=== PATIENT | male | born 1990 | race African-American/Black ===

== ENCOUNTER 2016-09-13 19:06 | Emergency (ER) | payer SELFPAY ==
[2016-09-13 19:19] VITALS: BP 136/91
--- NOTE | 2016-09-13 19:33 | ER Document Report ---
ED Medical Screen (RME) - General Chief Complaint: Numbness of Arm Stated Complaint: NUMBNESS IN LEFT HAND/CHEST PAIN Time Seen by Provider: 09/13/16 19:25 Notes: This 25-year-old male patient comes emergency room to report 2 episodes of his left hand going numb lasting 5-10 minutes along with pain in the left chest. Reports it was the entire hand including the fifth finger. Gotten to work, and was preparing to start when he was in an unpleasant conversation causing stress and bringing on his symptoms. The symptoms lasted 5 -10 minutes. The same thing occurred again later in the day. Phalen and Tinel tests are negative. I have greeted and performed a rapid initial assessment of this patient. A comprehensive ED assessment and evaluation of the patient, analysis of test results and completion of the medical decision making process will be conducted by additional ED providers. TRAVEL OUTSIDE OF THE [place] IN LAST 30 DAYS: No - Related Data Allergies/Adverse Reactions: No Known Allergies Allergy (Verified 02/19/16 07:13) Past Medical History - Social History Chew tobacco use (# tins/day): No Frequency of alcohol use: Social Drug Abuse: Marijuana Family history: Reviewed & Not Pertinent - Past Medical History Cardiac Medical History: Denies: Hx Coronary Artery Disease, Hx Hypercholesterolemia, Hx Hypertension , Hx Pulmonary Embolism Pulmonary Medical History: Denies: Hx Asthma Renal/ Medical History: Denies: Hx Peritoneal Dialysis Surgical Hx: Negative - Immunizations Immunizations up to date: No Hx Diphtheria, Pertussis, Tetanus Vaccination: Yes Physical Exam - Vital signs Vitals: Temp Pulse Resp BP Pulse Ox 98.3 F 79 20 136/91 H 99 09/13/16 19:15 09/13/16 19:15 09/13/16 19:15 09/13/16 19:15 09/13/16 19:15 Course - Vital Signs Vital signs: Temp Pulse Resp BP Pulse Ox 98.3 F 79 20 136/91 H 99 09/13/16 19:15 09/13/16 19:15 09/13/16 19:15 09/13/16 19:15 09/13/16 19:15
[2016-09-13 20:15] LABS: ABSOLUTE EOSINOPHILS # (AUTO) 0.1 10^3/uL (0.0-0.6); ABSOLUTE LYMPHOCYTES (AUTO) 1.8 10^3/uL (0.5-4.7); ABSOLUTE MONOCYTES (AUTO) 0.5 10^3/uL (0.1-1.4); ABSOLUTE NEUT (AUTO) 2.7 10^3/uL (1.7-8.2); BASOPHILS % (AUTO) 0.9 % (0-2); EOSINOPHILS % (AUTO) 1.7 % (0-6); HEMATOCRIT 44.3 % (37.9-51.0); HEMOGLOBIN 14.9 g/dL (13.5-17.0); HGB HCT DIFFERENCE 0.4; LYMPHOCYTES % (AUTO) 34.6 % (13-45); MEAN CORPUSCULAR HEMOGLOBIN 33.3 pg (27.0-33.4); MEAN CORPUSCULAR HGB CONC 33.5 g/dL (32.0-36.0); MEAN CORPUSCULAR VOLUME 99 fl (80-97); MONOCYTES % (AUTO) 10.2 % (3-13); RED BLOOD COUNT 4.47 10^6/uL (4.35-5.55); RED CELL DISTRIBUTION WIDTH 12.8 % (11.5-14.0); SEGMENTED NEUTROPHILS % (AUTO) 52.6 % (42-78); WHITE BLOOD COUNT 5.2 10^3/uL (4.0-10.5)
[2016-09-13 20:18] LABS: APPEARANCE,URINE CLEAR; BILIRUBIN,URINE NEGATIVE (NEGATIVE); GLUCOSE, URINE NEGATIVE (NEGATIVE); KETONES,URINE NEGATIVE (NEGATIVE); LEUKOCYTE ESTERASE,URINE NEGATIVE (NEGATIVE); NITRITE,URINE NEGATIVE (NEGATIVE); PROTEIN,URINE NEGATIVE (NEGATIVE); UROBILINOGEN,URINE NEGATIVE mg/dL (<2.0)
[2016-09-13 20:30] LABS: ALANINE AMINOTRANSFERASE 48 U/L (21-72); ALBUMIN 4.3 g/dL (3.5-5.0); ALKALINE PHOSPHATASE 53 U/L (38-126); ANION GAP 12 (5-19); ASPARTATE AMINO TRANSFERASE 33 U/L (17-59); BILIRUBIN,DIRECT 0.1 mg/dL (0.0-0.4); BILIRUBIN,TOTAL 1.2 mg/dL (0.2-1.3); BLOOD UREA NITROGEN 9 mg/dL (7-20); CALCIUM 9.6 mg/dL (8.4-10.2); CARBON DIOXIDE 30 mmol/L (22-30); CHLORIDE 99 mmol/L (98-107); CREATINE KINASE 444 U/L (55-170); CREATININE RESULT 0.95 mg/dL (0.52-1.25); GLUCOSE 84 mg/dL (75-110); POTASSIUM 3.9 mmol/L (3.6-5.0); SODIUM 140.6 mmol/L (137-145)
[2016-09-13 20:36] LABS: URINE BARBITURATES SCREEN NEGATIVE; URINE METHADONE SCREEN NEGATIVE; URINE OPIATES LOW NEGATIVE; URINE PHENCYCLIDINE SCREEN NEGATIVE
[2016-09-13 21:02] LABS: CREATINE KINASE MB 3.95 ng/mL (<4.55)
[2016-09-13 21:07] LABS: TROPONIN I < 0.012 ng/mL
--- NOTE | 2016-09-16 09:52 | EKG REPORT ---
SEVERITY:- ABNORMAL ECG - SINUS RHYTHM PROBABLE LEFT VENTRICULAR HYPERTROPHY ST ELEV, PROBABLE NORMAL EARLY REPOL PATTERN : Confirmed by: Paulette Loyd 16-Sep-2016 09:51:59
== END 2016-09-13 20:45 | disposition left against medical advice (07) ==
LOC: ER 19:06
DX: Z53.9 Procedure and treatment not carried out, unspecified reason (principal); R20.0 Anesthesia of skin; R07.9 Chest pain, unspecified
CPT/HCPCS: 36415; 80053; 80307; 81001; 82550; 82553; 84484; 85025; 93005; 93010; 99281

== ENCOUNTER 2016-09-18 17:55 | Emergency (ER) | payer SELFPAY ==
[2016-09-18 18:09] VITALS: BP 141/82
--- NOTE | 2016-09-18 21:27 | ER Document Report ---
ED General - General Chief Complaint: Wrist Pain Stated Complaint: WRIST PAIN Time Seen by Provider: 09/18/16 21:08 Notes: Patient is a 25-year-old male without past medical history who presents with 2 weeks of intermittent left-sided chest pain. Does describe the pain as an intermittent, sharp, stabbing pain that is exacerbated by moving his left shoulder or left. He has not tried anything to improve his symptoms. He has not seen his primary care doctor regarding today's concerns. He denies any acute injury to the area. No associated shortness of breath, vomiting, diaphoresis. No history of DVT or pulmonary embolus. TRAVEL OUTSIDE OF THE [place] IN LAST 30 DAYS: No - Related Data Allergies/Adverse Reactions: No Known Allergies Allergy (Verified 09/18/16 18:00) Past Medical History - General Information source: Patient - Social History Smoking Status: Current Every Day Smoker Chew tobacco use (# tins/day): No Frequency of alcohol use: None Drug Abuse: None Lives with: Spouse/Significant other Family History: DM Patient has suicidal ideation: No Patient has homicidal ideation: No - Past Medical History Cardiac Medical History: Denies: Hx Coronary Artery Disease, Hx Hypercholesterolemia, Hx Hypertension , Hx Pulmonary Embolism Pulmonary Medical History: Denies: Hx Asthma Renal/ Medical History: Denies: Hx Peritoneal Dialysis Surgical Hx: Negative - Immunizations Immunizations up to date: No Hx Diphtheria, Pertussis, Tetanus Vaccination: Yes Review of Systems - Review of Systems Notes: Constitutional: Negative for fever. HENT: Negative for sore throat. Eyes: Negative for visual changes. Cardiovascular: Positive for chest pain. Respiratory: Negative for shortness of breath. Gastrointestinal: Negative for abdominal pain, vomiting or diarrhea. Genitourinary: Negative for dysuria. Musculoskeletal: Negative for back pain. Skin: Negative for rash. Neurological: Negative for headaches, weakness or numbness. 10 point ROS negative except as marked above and in HPI. Physical Exam - Vital signs Vitals: Temp Pulse Resp BP Pulse Ox 98.3 F 66 18 141/82 H 98 09/18/16 18:02 09/18/16 18:02 09/18/16 18:02 09/18/16 18:02 09/18/16 18:02 Interpretation: Normal Notes: PHYSICAL EXAMINATION: GENERAL: Well-appearing, well-nourished and in no acute distress. HEAD: Atraumatic, normocephalic. EYES: Pupils equal round and reactive to light, extraocular movements intact, sclera anicteric, conjunctiva are normal. ENT: nares patent, oropharynx clear without exudates. Moist mucous membranes. NECK: Normal range of motion, supple without lymphadenopathy LUNGS: Breath sounds clear to auscultation bilaterally and equal. No wheezes rales or rhonchi. HEART: Regular rate and rhythm without murmurs ABDOMEN: Soft, nontender, normoactive bowel sounds. No guarding, no rebound. No masses appreciated. EXTREMITIES: Normal range of motion, no pitting or edema. No cyanosis. NEUROLOGICAL: No focal neurological deficits. Moves all extremities spontaneously and on command. PSYCH: Normal mood, normal affect. SKIN: Warm, Dry, normal turgor, no rashes or lesions noted. Course - Re-evaluation Re-evalutation: 09/18/16 21:27 Patient is a well-appearing, 25-year-old male in no acute distress who presents with 2 weeks of intermittent left-sided chest discomfort. Does describe it as intermittent stabbing pains. Suspect musculoskeletal irritation given the reproducible nature pain on exam, clinical history, normal vitals and well appearance. Low clinical suspicion for an acute PE, pneumothorax, esophageal perforation or acute UT. Chest x-ray and EKG are unremarkable. I recommended conservative management and close outpatient follow-up. At this time will discharge with return precautions and follow-up recommendations. Verbal discharge instructions given a the bedside and opportunity for questions given. Medication warnings reviewed. Patient is in agreement with this plan and has verbalized understanding of return precautions and the need for primary care follow-up in the next 24-72 hours. - Vital Signs Vital signs: Temp Pulse Resp BP Pulse Ox 98.3 F 66 18 141/82 H 98 09/18/16 18:02 09/18/16 18:02 09/18/16 18:02 09/18/16 18:02 09/18/16 18:02 - Diagnostic Test Radiology reviewed: Image reviewed, Reports reviewed Radiology results interpreted by me: 09/19/16 02:55 Chest x-ray: No acute infiltrate or pneumothorax - EKG Interpretation by Me Additional EKG results interpreted by me: 09/19/16 02:55 Sinus bradycardia. Rate 54. No ST elevations or depressions. QTC is 372. Discharge - Discharge Clinical Impression: Musculoskeletal chest pain Condition: Good Disposition: HOME, SELF-CARE Additional Instructions: Your chest wall pain is due to inflammation of your ribs. This pain can last for up to 6 weeks. It is very important that you continue to take purposeful deep breaths. For your pain: Continue to take ibuprofen 600 mg every 6 hours or Tylenol 1000 mg every 6 hours. Apply local lidocaine to the area per bottle instructions. There is a product sold [id number] called "Aspercreme with lidocaine" that you can use for this purpose. Please follow-up with her primary care doctor in the next 2-3 days. Return to the emergency department immediately if you develop worsening shortness of breath, increased pain, begin coughing blood, pass out, or have any other symptoms that are worrisome to you.
--- NOTE | 2016-09-18 21:59 | RADIOLOGY REPORT (SQ) ---
EXAM DESCRIPTION: CHEST SINGLE VIEW COMPLETED DATE/TIME: 09/18/2016 9:51 pm REASON FOR STUDY: chest pain COMPARISON: 02/03/2016 EXAM PARAMETERS: NUMBER OF VIEWS: One view. TECHNIQUE: Single frontal radiographic view of the chest acquired. RADIATION DOSE: NA LIMITATIONS: None. FINDINGS: LUNGS AND PLEURA: No opacities, masses or pneumothorax. No pleural effusion. MEDIASTINUM AND HILAR STRUCTURES: No masses. Contour normal. HEART AND VASCULAR STRUCTURES: Heart normal in size. Normal vasculature. BONES: No acute findings. HARDWARE: None in the chest. OTHER: No other significant finding. IMPRESSION: NO ACUTE RADIOGRAPHIC FINDING IN THE CHEST. TECHNICAL DOCUMENTATION: JOB ID: [id number]
--- NOTE | 2016-09-19 09:18 | EKG REPORT ---
SEVERITY:- ABNORMAL ECG - SINUS RHYTHM MULTIPLE PREMATURE SUPRAVEN ST ELEVATION SUGGESTS PERICARDITIS : Confirmed by: Paulette Loyd 19-Sep-2016 09:17:59
== END 2016-09-18 23:06 | disposition home or self-care (01) ==
LOC: ER 17:55
DX: R07.89 Other chest pain (principal); M25.539 Pain in unspecified wrist; F17.200 Nicotine dependence, unspecified, uncomplicated
CPT/HCPCS: 71010; 93005; 93010; 99284

== ENCOUNTER 2016-10-22 00:21 | Emergency (ER) | payer SELFPAY ==
--- NOTE | 2016-10-22 02:44 | RADIOLOGY REPORT (SQ) ---
EXAM DESCRIPTION: CHEST PA/LAT COMPLETED DATE/TIME: 10/22/2016 2:16 am REASON FOR STUDY: difficulty breathing COMPARISON: 09/18/2016. EXAM PARAMETERS: NUMBER OF VIEWS: two views TECHNIQUE: Digital Frontal and Lateral radiographic views of the chest acquired. RADIATION DOSE: NA LIMITATIONS: none FINDINGS: LUNGS AND PLEURA: No opacities, masses or pneumothorax. No pleural effusion. MEDIASTINUM AND HILAR STRUCTURES: No masses or contour abnormalities. HEART AND VASCULAR STRUCTURES: Heart normal size. No evidence for failure. BONES: No acute findings. HARDWARE: None in the chest. OTHER: No other significant finding. IMPRESSION: NO SIGNIFICANT RADIOGRAPHIC FINDING IN THE CHEST. TECHNICAL DOCUMENTATION: JOB ID: [id number] [employer]- All Rights Reserved
[2016-10-22] MEDS ORDERED: ALPRAZOLAM 0.5 MG TABLET PO ONE (04:23)
--- NOTE | 2016-10-22 04:27 | ER Document Report ---
ED General - General Chief Complaint: Shortness Of Breath Stated Complaint: SHORTNESS OF BREATH Time Seen by Provider: 10/22/16 04:12 Mode of Arrival: Ambulatory Information source: Patient TRAVEL OUTSIDE OF THE [place] IN LAST 30 DAYS: No - HPI Notes: Patient is a 25-year-old male presents to the emergency department with report of dyspnea and some palpitations with chest discomfort that comes on just at rest "when he is thinking about it." The patient exercises regularly at work using a weed eater and a push mower in the heat without having any chest pain or dyspnea or palpitations. Patient admits to some anxiety. Patient admits to marijuana use, but denies any other drug use. No fever or chills or cough or congestion. - Related Data Allergies/Adverse Reactions: No Known Allergies Allergy (Verified 09/18/16 18:00) Past Medical History - General Information source: Patient - Social History Smoking Status: Current Some Day Smoker Frequency of alcohol use: None Drug Abuse: Marijuana Family History: DM Patient has suicidal ideation: No Patient has homicidal ideation: No - Past Medical History Cardiac Medical History: Denies: Hx Coronary Artery Disease, Hx Hypercholesterolemia, Hx Hypertension , Hx Pulmonary Embolism Pulmonary Medical History: Denies: Hx Asthma Renal/ Medical History: Denies: Hx Peritoneal Dialysis - Immunizations Immunizations up to date: No Hx Diphtheria, Pertussis, Tetanus Vaccination: Yes Review of Systems - Review of Systems Notes: REVIEW OF SYSTEMS: CONSTITUTIONAL : Denies fever, chills, or sweats. Denies recent illness. EENT: Denies eye, ear, throat, or mouth pain or symptoms. Denies nasal or sinus congestion or discharge. Denies throat, tongue, or mouth swelling or difficulty swallowing. CARDIOVASCULAR: Denies ankle edema. RESPIRATORY: Denies cough, cold, or chest congestion. Denies wheezing. GASTROINTESTINAL: Denies abdominal pain or distention. Denies nausea, vomiting , or diarrhea. Denies blood in vomitus, stools, or per rectum. Denies black, tarry stools. Denies constipation. GENITOURINARY: Denies difficulty urinating, painful urination, burning, frequency, blood in urine, or discharge. MUSCULOSKELETAL: Denies back or neck pain or stiffness. Denies joint pain or swelling. SKIN: Denies rash, lesions or sores. HEMATOLOGIC : Denies easy bruising or bleeding. LYMPHATIC: Denies swollen, enlarged glands. NEUROLOGICAL: Denies confusion or altered mental status. Denies passing out or loss of consciousness. Denies dizziness or lightheadedness. Denies headache. Denies weakness or paralysis or loss of use of either side. Denies problems with gait or speech. Denies sensory loss, numbness, or tingling. Denies seizures. PSYCHIATRIC: Denies depression, suicidal ideation, or homicidal ideation. ALL OTHER SYSTEMS REVIEWED AND NEGATIVE. Dictation was performed using [employer] voice recognition software Physical Exam - Vital signs Vitals: Temp Pulse Resp BP Pulse Ox 98.6 F 77 20 139/79 H 96 10/22/16 00:25 10/22/16 00:25 10/22/16 00:25 10/22/16 00:25 10/22/16 00:25 - Notes Notes: PHYSICAL EXAMINATION: GENERAL: Well-appearing, well-nourished and in no acute distress. HEAD: Atraumatic, normocephalic. EYES: Pupils equal round and reactive to light, extraocular movements intact, sclera anicteric, conjunctiva are normal. ENT: Nares patent, oropharynx clear without exudates. Moist mucous membranes. NECK: Normal range of motion, supple without lymphadenopathy LUNGS: Breath sounds clear to auscultation bilaterally and equal. No wheezes rales or rhonchi. HEART: Regular rate and rhythm without murmurs ABDOMEN: Soft, nontender, nondistended abdomen. No guarding, no rebound. No masses appreciated. Musculoskeletal: Normal range of motion, no pitting or edema. No cyanosis. NEUROLOGICAL: Cranial nerves grossly intact. Normal speech, normal gait. Normal sensory, motor exams PSYCH: Somewhat anxious. No hallucinations. SKIN: Warm, Dry, normal turgor, no rashes or lesions noted. Course - Re-evaluation Re-evalutation: 10/22/16 05:52 Patient given Xanax with complete relief of symptoms and felt stable for discharge. Patient ambulatory without complaint and had stable vitals and good oxygen saturation. No evidence for pneumonia, congestive heart failure, cardiac ischemia or acute [place]. No clinical suggestion for pulmonary embolus. 10/22/16 05:56 - Vital Signs Vital signs: Temp Pulse Resp BP Pulse Ox 97.7 F 58 L 16 91/51 L 98 10/22/16 03:58 10/22/16 03:58 10/22/16 05:02 10/22/16 05:02 10/22/16 05:02 - EKG Interpretation by Me EKG shows normal: Sinus rhythm - 1 some time Additional EKG results interpreted by me: 10/22/16 04:34 10/22/16 04:35 EKG as interpreted by me showed normal sinus rhythm heart rate of 51 with mild bradycardia. There is no gross evidence for acute [place] or ischemia. Patient has borderline LVH consistent with thin black male. Discharge - Discharge Clinical Impression: Anxiety Dyspnea Qualifiers: Dyspnea type: unspecified Qualified Code(s): R06.00 - Dyspnea, unspecified Chest pain Qualifiers: Chest pain type: unspecified Qualified Code(s): R07.9 - Chest pain, unspecified Condition: Stable Disposition: HOME, SELF-CARE Instructions: Anxiety ([facility]), Chest Pain of Unclear Cause ([facility]) Prescriptions: Alprazolam [Xanax 0.5 mg Tablet] 0.5 mg PO Q12HP PRN #20 tab PRN Reason: Forms: Return to Work
[2016-10-22 06:03] VITALS: BP 110/71
--- NOTE | 2016-10-22 07:49 | EKG REPORT ---
SEVERITY:- ABNORMAL ECG - SINUS RHYTHM ST ELEVATION SUGGESTS PERICARDITIS VS EARLY REPOLARIZATION : Confirmed by: Paulette Loyd 22-Oct-2016 07:48:16
== END 2016-10-22 06:10 | disposition home or self-care (01) ==
LOC: ER 00:21
DX: F41.9 Anxiety disorder, unspecified (principal); R06.02 Shortness of breath; R07.9 Chest pain, unspecified; R00.2 Palpitations; F17.200 Nicotine dependence, unspecified, uncomplicated
CPT/HCPCS: 71020; 93005; 93010; 99285

== ENCOUNTER 2018-02-08 00:45 | Emergency (ER) | payer SELFPAY ==
[2018-02-08 00:58] VITALS: BP 133/74
--- NOTE | 2018-02-08 01:43 | RADIOLOGY REPORT (SQ) ---
EXAM DESCRIPTION: XR ELBOW 3 VIEWS COMPLETED DATE/TME: 02/08/2018 01:28 CLINICAL HISTORY: 27 years, Male, left elbow pain COMPARISON: None. NUMBER OF VIEWS: 3 TECHNIQUE: 3 view left elbow LIMITATIONS: None. FINDINGS: Negative for acute fracture or dislocation. Punctate hyperdensities along the lateral aspect of the elbow soft tissues are noted. Tiny olecranon spur. There is no visible posterior fat pad. Some questionable elevation of the anterior fat pad IMPRESSION: Negative for fracture. Punctate densities in the lateral soft tissues. Tiny olecranon spur. Some equivocal elevation of the anterior fat pad on the lateral view for which small joint effusion is not excluded 2010 [employer]- All Rights Reserved
[2018-02-08] MEDS ORDERED: KETOROLAC TROMETHAMINE 60 MG/2 ML SDV IM ONE (01:56)
[2018-02-08] MEDS ORDERED: LIDOCAINE 5% (700 MG) TRANSDERMAL ADH..PATCH TP ONE (01:56)
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
== END 2018-02-08 03:30 | disposition home or self-care (01) ==
LOC: ER 00:45
DX: S59.902A Unspecified injury of left elbow, initial encounter (principal); M25.522 Pain in left elbow; X58.XXXA Exposure to other specified factors, initial encounter; F17.200 Nicotine dependence, unspecified, uncomplicated
CPT/HCPCS: 99283; 96372; 73080; J1885

== ENCOUNTER 2018-09-16 17:11 | Emergency (ER) | payer SELFPAY ==
[2018-09-16] MEDS ORDERED: DIPHENHYDRAMINE HCL 50 MG/ML VIAL ONE (17:15)
[2018-09-16] MEDS ORDERED: METHYLPREDNISOLONE INJ 125 MG/2 ML SDV ONE (17:15)
[2018-09-16] MEDS ORDERED: FAMOTIDINE INJ/PF 20 MG/2 ML SDV IV ONE (17:15)
[2018-09-16] MEDS ORDERED: EPINEPHRINE INJ/PF 1 MG/1 ML AMPULE ONE ×2 (17:15→20:59)
[2018-09-16] MEDS ORDERED: ONDANSETRON HCL INJ/PF 4 MG/2 ML SDV ONE (17:16)
[2018-09-16] MEDS ORDERED: AMMONIA INHALANTS 10 AMPUL/BOX IH ONE (17:21)
[2018-09-16] MEDS ORDERED: NALOXONE HCL INJ 2 MG/2 ML DISP.SYRIN ONE (17:23)
--- NOTE | 2018-09-16 20:26 | ER Document Report ---
ED General - General Chief Complaint: Allergic Reaction Stated Complaint: POSSIBLE ALLERGIC REACTION Time Seen by Provider: 09/16/18 17:44 Mode of Arrival: Wheelchair Information source: Patient Notes: 27-year-old male presents after a bug bite just prior to arrival. Patient complaining of difficulty swallowing. He is diaphoretic, vomiting and tachycardic upon arrival. Patient denies shortness of breath, rash, chest pain, abdominal pain. Does admit to cocaine use 2 days ago. Denies any known allergies. TRAVEL OUTSIDE OF THE [place] IN LAST 30 DAYS: No - HPI Onset: Just prior to arrival Onset/Duration: Sudden Quality of pain: No pain Severity: Mild Associated symptoms: Nausea, Vomiting, Other - Difficulty swallowing Exacerbated by: Denies Relieved by: Denies Similar symptoms previously: No Recently seen / treated by doctor: No - Related Data Allergies/Adverse Reactions: No Known Allergies Allergy (Verified 09/16/18 17:29) Past Medical History - General Information source: Patient, Friend - Social History Smoking Status: Current Every Day Smoker Cigarette use (# per day): Yes - 10 Chew tobacco use (# tins/day): No Smoking Education Provided: Yes - Smoking cessation counseling was provided for 4 minutes at the bedside Frequency of alcohol use: Occasional Drug Abuse: Cocaine, Marijuana Lives with: Family Family History: DM Patient has suicidal ideation: No Patient has homicidal ideation: No - Past Medical History Cardiac Medical History: Denies: Hx Coronary Artery Disease, Hx Hypercholesterolemia, Hx Hypertension, Hx Pulmonary Embolism Pulmonary Medical History: Denies: Hx Asthma Renal/ Medical History: Denies: Hx Peritoneal Dialysis - Immunizations Immunizations up to date: No Hx Diphtheria, Pertussis, Tetanus Vaccination: Yes Review of Systems - Review of Systems Notes: REVIEW OF SYSTEMS: CONSTITUTIONAL : Denies fever, chills, or sweats. Denies recent illness. Denies weight loss, recent hospitalizations. EENT: Denies visual changes, eye pain. Denies sore throat, oral lesions, + difficulty swallowing. CARDIOVASCULAR: Denies chest pain. Denies palpitations. Denies lower extremity edema. RESPIRATORY: Denies cough. Denies shortness of breath, wheezing. GASTROINTESTINAL: Denies abdominal pain or distention. Denies nausea, vomiting, or diarrhea. Denies blood in vomitus, stools, or per rectum. Denies black, tarry stools. Denies constipation. GENITOURINARY: Denies difficulty urinating, painful urination, frequency, blood in urine, testicular pain or penile discharge. MUSCULOSKELETAL: Denies back or neck pain or stiffness. Denies joint pain or swelling. SKIN: Denies rash, lesions or sores. HEMATOLOGIC : Denies easy bruising or bleeding. LYMPHATIC: Denies swollen glands. NEUROLOGICAL: Denies confusion or altered mental status. Denies loss of consciousness. Denies dizziness or lightheadedness. Denies headache. Denies weakness or paralysis. Denies problems difficulty with ambulation, slurred speech. Denies sensory loss, numbness, or tingling. Denies seizures. PSYCHIATRIC: Denies anxiety or stress. Denies depression, suicidal ideation, or Physical Exam - Vital signs Vitals: Resp Pulse Ox 15 97 09/16/18 17:23 09/16/18 17:23 - Notes Notes: PHYSICAL EXAMINATION: GENERAL: Ill-appearing, diaphoretic, actively vomiting moderate distress. HEAD: Atraumatic, normocephalic. EYES: Pupils equal round and reactive to light, extraocular movements intact, sclera anicteric, conjunctiva are normal. ENT: Nares patent, oropharynx clear without exudates. Moist mucous membranes. NECK: Normal range of motion, supple without lymphadenopathy LUNGS: Breath sounds clear to auscultation bilaterally and equal. No wheezes rales or rhonchi. HEART: Tachycardic, regular rhythm no murmurs ABDOMEN: Soft, nontender, nondistended abdomen. No guarding, no rebound. No masses appreciated. Musculoskeletal: Normal range of motion, no pitting or edema. No cyanosis. NEUROLOGICAL: Cranial nerves grossly intact. Normal speech, normal gait. Normal sensory, motor exams PSYCH: Normal mood, normal affect. SKIN: Diaphoretic. Small area of erythema anterior to the left tragus. No urticaria Course - Re-evaluation Re-evalutation: Laboratory 09/16/18 17:21 POC Glucose 142 H Temp Pulse Resp BP Pulse Ox 97.9 F 15 132/81 H 100 09/16/18 19:01 09/16/18 19:01 09/16/18 19:01 09/16/18 18:31 09/16/18 21:16 Patient presented with complaint of a bug bite to his left ear. Upon arrival he was diaphoretic, tachycardic and vomiting. Patient had no wheezing, airway swelling, rash or hives. Patient did receive Zofran, Benadryl, Solu-Medrol and Pepcid. After fluid bolus heart rate improved. Patient had an initial heart rate of 133. Heart rate presently is 92. On reevaluation patient had some lip swelling and IM epinephrine was administered. On fourth reevaluation lip swelling has improved airway still patent and patient is still without any airway compromise rash or wheezing. 09/16/18 21:43 On reevaluation lip swelling improved. Patient tolerating food, fluid. 09/16/18 21:44 Patient presents with symptoms consistent with an allergic reaction without anaphylaxis. cutaneous involvement with area of hives, upper lip awelling. Tachycardia resolved No respiratory, cardiovascular, symptoms. A trial of epinephrine for symptom resolution was offered to the patient. This did resolve lip swelling. Will recommend ongoing antihistamine therapy as an outpatient. At this time will discharge with return precautions and follow-up recommendations. Verbal discharge instructions given a the bedside and opportunity for questions given. Medication warnings reviewed. Patient is in agreement with this plan and has verbalized understanding of return precautions and the need for primary care follow-up in the next 24-72 hours. - Vital Signs Vital signs: Temp Pulse Resp BP Pulse Ox 97.9 F 14 130/77 H 99 09/16/18 19:01 09/16/18 21:00 09/16/18 20:31 09/16/18 21:00 - Laboratory Laboratory results interpreted by me: 09/16/18 17:21 POC Glucose 142 H Discharge - Discharge Clinical Impression: Bug bite of face without infection Allergic reaction Qualifiers: Encounter type: initial encounter Qualified Code(s): T78.40XA - Allergy, unspecified, initial encounter Condition: Good Disposition: HOME, SELF-CARE Instructions: Acute Allergic Reaction ([facility]) Additional Instructions: Patient presents with symptoms consistent with an allergic reaction without anaphylaxis. Only cutaneous involvement with multiple areas of hives. Vitals otherwise within normal limits at time of arrival. No respiratory, GI, cardiovascular, or oral pharyngeal symptoms. A trial of epinephrine for symptom resolution was offered to the patient. This did resolve the majority of the patient's hives. Will recommend ongoing antihistamine therapy as an outpatient. At this time will discharge with return precautions and follow-up recommendati ons. Verbal discharge instructions given a the bedside and opportunity for questions given. Medication warnings reviewed. Patient is in agreement with this plan and has verbalized understanding of return precautions and the need for primary care follow-up in the next 24-72 hours. Prescriptions: Diphenhydramine HCl [Benadryl 25 mg Capsule] 25 mg PO Q8H #15 capsule Epinephrine [Epipen 2-Philip] 0.3 mg IJ ASDIR PRN #1 auto.injct PRN Reason: Shortness Of Breath Famotidine [Pepcid 40 mg Tablet] 40 mg PO DAILY #7 tablet Prednisone [Deltasone 20 mg Tablet] 3 tab PO DAILY 5 Days #15 tablet
[2018-09-16] MEDS ORDERED: EPINEPHRINE INJ/PF 1 MG/1 ML AMPULE IM ONE (20:28)
[2018-09-16] MEDS ORDERED: EPINEPHRINE INJ/PF 1 MG/1 ML AMPULE IM PRN (21:05)
[2018-09-16 22:09] VITALS: BP 139/71
--- NOTE | 2018-09-17 08:22 | EKG REPORT ---
SEVERITY:- ABNORMAL ECG - SINUS RHYTHM RIGHT ATRIAL ABNORMALITY BORDERLINE RIGHT AXIS DEVIATION : Confirmed by: Juan Velasquez MD 17-Sep-2018 08:22:18
== END 2018-09-16 22:09 | disposition home or self-care (01) ==
LOC: ER 17:11
DX: S00.86XA Insect bite (nonvenomous) of other part of head, initial encounter (principal); W57.XXXA Bitten or stung by nonvenomous insect and other nonvenomous arthropods, initial encounter; T78.40XA Allergy, unspecified, initial encounter; X58.XXXA Exposure to other specified factors, initial encounter; R13.10 Dysphagia, unspecified; R61 Generalized hyperhidrosis; R11.2 Nausea with vomiting, unspecified; F14.10 Cocaine abuse, uncomplicated; F12.10 Cannabis abuse, uncomplicated; R00.0 Tachycardia, unspecified; F17.210 Nicotine dependence, cigarettes, uncomplicated; Z71.6 Tobacco abuse counseling
CPT/HCPCS: 93005; 99283; 96372; 96374; 96375; 82962; 93010; J1200; J0171; J2930; J2405; S0028

== ENCOUNTER 2018-11-16 11:56 | Emergency (ER) | payer OTHER ==
[2018-11-16] MEDS ORDERED: FAMOTIDINE INJ/PF 20 MG/2 ML SDV IV ONE (12:30)
[2018-11-16] MEDS ORDERED: DIPHENHYDRAMINE HCL 50 MG/ML VIAL IV ONE (12:30)
[2018-11-16] MEDS ORDERED: METHYLPREDNISOLONE INJ 125 MG/2 ML SDV IV ONE (12:30)
--- NOTE | 2018-11-16 12:57 | RADIOLOGY REPORT (SQ) ---
EXAM DESCRIPTION: CHEST 2 VIEWS COMPLETED DATE/TIME: 11/16/2018 12:39 pm REASON FOR STUDY: Bee sting, chest pain COMPARISON: 10/22/2016 EXAM PARAMETERS: NUMBER OF VIEWS: two views TECHNIQUE: Digital Frontal and Lateral radiographic views of the chest acquired. RADIATION DOSE: NA LIMITATIONS: none FINDINGS: LUNGS AND PLEURA: No opacities, masses or pneumothorax. No pleural effusion. MEDIASTINUM AND HILAR STRUCTURES: No masses or contour abnormalities. HEART AND VASCULAR STRUCTURES: Heart normal size. No evidence for failure. BONES: No acute findings. HARDWARE: None in the chest. OTHER: No other significant finding. IMPRESSION: NO ACUTE RADIOGRAPHIC FINDING IN THE CHEST. TECHNICAL DOCUMENTATION: JOB ID: [id number] [employer] All Rights Reserved Reading location - IP/workstation name: [email or web address]
--- NOTE | 2018-11-16 14:09 | ER Document Report ---
ED Allergic Reaction - General Chief Complaint: Allergic Reaction Stated Complaint: POSSIBLE ALLERGIC REACTION Time Seen by Provider: 11/16/18 12:30 Notes: Patient was stung on the left dorsal lateral hand by yellow jackets about 25 minutes ago. Not stung elsewhere. Feels some tightness in his chest. Feels some difficulty breathing as well. Does not have any rash and is not itching. No swelling in the oral cavity. TRAVEL OUTSIDE OF THE [place] IN LAST 30 DAYS: No - Related Data Allergies/Adverse Reactions: No Known Allergies Allergy (Verified 09/16/18 17:29) Past Medical History - Social History Smoking Status: Current Every Day Smoker Chew tobacco use (# tins/day): No Frequency of alcohol use: Heavy Drug Abuse: Marijuana Family History: Reviewed & Not Pertinent, DM Patient has suicidal ideation: No Patient has homicidal ideation: No Renal/ Medical History: Reports: Hx Peritoneal Dialysis - Immunizations Immunizations up to date: No Hx Diphtheria, Pertussis, Tetanus Vaccination: Yes Review of Systems - Review of Systems Notes: CONSTITUTIONAL : Denies fever. CARDIOVASCULAR: Does have chest tightness, especially on the left side. RESPIRATORY: Denies cough, chest congestion, or shortness of breath. GASTROINTESTINAL: Denies abdominal pain or nausea, vomiting, or diarrhea. GENITOURINARY: Denies difficulty or painful urinating, urinary frequency, blood in urine. Physical Exam - Vital signs Vitals: Temp Pulse Resp BP Pulse Ox 97.5 F 47 L 18 122/72 100 11/16/18 12:00 11/16/18 12:00 11/16/18 12:00 11/16/18 12:00 11/16/18 12:00 Interpretation: Normal - Except for heart rate of 47 when triaged. Notes: PHYSICAL EXAMINATION: GENERAL: Well-appearing, no acute distress. Anxious. HEAD: Atraumatic, normocephalic. HEENT: Normal without any swelling of soft tissues. NECK: Normal range of motion, supple. LUNGS: Breath sounds clear and equal bilaterally. No wheezes heard. HEART: Regular rate and rhythm without murmurs heard. ABDOMEN: Soft, nontender. No guarding or rebound or masses felt. Skin: No rashes seen. Course - Re-evaluation Re-evalutation: 11/16/18 14:06 Patient feeling much better. Sleeping. No difficulty breathing. She remained stable throughout his entire stay in the department. He was discharged with advised to take [id number] Benadryl or Pepcid if he has any more rash. Given a note for work for a day. - Vital Signs Vital signs: Temp Pulse Resp BP Pulse Ox 97.5 F 47 L 18 118/75 100 11/16/18 14:13 11/16/18 12:00 11/16/18 12:00 11/16/18 14:13 11/16/18 14:13 - Diagnostic Test Radiology results interpreted by wy: 11/16/18 19:09 Chest x-ray was normal. - EKG Interpretation by Mi EKG shows normal: Sinus rhythm Rate: Bradycardia Rhythm: NSR Additional EKG results interpreted by wy: 11/16/18 19:01 EKG has a rate of 48. Changes suggestive of early repolarization noted. No evidence of ST segment elevation of STEMI. Discharge - Discharge Clinical Impression: Allergic reaction to bee sting Condition: Stable Disposition: HOME, SELF-CARE Additional Instructions: Insect Sting You've been stung by an insect. The venom can cause pain, redness, and swelling. Right after the sting, we sometimes use adrenaline to reduce the reaction to the venom. This also stops any allergic reaction. You should apply cold compresses, rest and elevate the affected part, and take antihistamines. A more severe, itchy red swelling sometimes develops the next day. This is a local allergic reaction to the venom. This local allergy isn't dangerous. We treat it with cortisone-type medicine and antihistamines. Sometimes we use antibiotics if we're worried about infection. If you develop a fever, chills, a red streak, or swollen glands in the area of the bite, infection may be starting. Return at once. Insect stings from the bee and hornet family may cause a severe allergic reaction. Symptoms include hoarseness, shortness of breath, general redness of the skin, general itching, or lightheadedness. If any of these symptoms occur, you'll be treated with adrenalin and cortisone-like steroids. You should carry an "Anaphylaxis Kit" with you in the summer months so you can administer these medications to yourself before getting emergency medical care. ACUTE ALLERGIC REACTION: Your symptoms are due to an allergic reaction. Allergy can cause hives, swelling of the hands, feet, and face, hoarseness, and difficulty swallowing or breathing. It may be due to exposure to medication, animal dander, foods, infection, or insect bites. Medication is a common cause, even when prior use of this same medication caused no problems. Acute treatment may include adrenalin and antihistamines. Usually, the specific allergic agent can't be identified unless repeated episodes occur. Home treatment includes the following: (1) Stop any suspicious medications. This will be discussed with you. (2) Oral antihistamines for the next four to five days. Example, diphenhydramine (Benadryl) every four hours. (3) You may also use cimetidine (Tagamet), ranitidine (Zantac), or famotidine (Pepcid) every four hours if diphenhydramine is not controlling itching and hives. (4) Avoid aspirin until the hives completely disappear. (5) Avoid hot baths or showers until the hives are completely gone. Call the doctor if faintness, difficulty swallowing, tightness in the chest, or wheezing occurs. STEROID MEDICATION INJECTION: You have been given an injection of medicine of the cortisone/steroid class. This medication is used to control inflammation or allergy. It is often continued as a pill for a short period of time, until the acute process subsides. There are usually no side effects from short-term use of cortisone-like medications. Some persons feel an increased sense of well-being and are not sleepy at bedtime. Long-term use of cortisone medications is best avoided, unless required for a severe condition. If your condition does not remit, or relapses after the course of corticosteroid medication, you should consult your physician. ACID-SUPPRESSING MEDICATION: You have a prescription for medicine which reduces the stomach's secretion of acid. Examples include Zantac, Tagament, and Pepcid. These drugs are often used to allow healing of ulcers or esophagitis. They may be needed to prevent recurrence of ulcers in some patients, or to prevent damage from acid reflux in the esophagus. Take all medication as prescribed, even after the pain is gone. Regular antacids may be added as needed if you have symptoms while taking this medicine. These medications sometimes are prescribed for allergic reactions because they have anti-histaminic effects and relieve the rash and itching of the reaction. There are usually no side effects from this medication. But, in rare cases and particularly in the elderly, serious problems can occur. Contact your doctor if there is fever, rash, hallucinations, confusion, or unusual bruising. Contact your doctor at once if you develop lightheadedness, black or bloody stool, or bloody vomitus. ANTIHISTAMINES: An antihistamine has been given and/or prescribed to control your symptoms. Antihistamines are used for many reasons, including itching, watering eyes, runny nose, allergic swelling, hives, and insect stings. Antihistamines may cause drowsiness, especially with the first dose. Do not operate machinery or drive while under the effects of the medication. Other common side effects include dry mouth and eyes. In older persons, antihistamines can occasionally cause urinary retention, constipation, and trouble focusing the eyes. Do not combine the medication with alcohol, or with any other medication without talking to your doctor. USE OF DIPHENHYDRAMINE: The use of diphenhydramine (Benadryl) has been recommended to control allergic symptoms. The 25 mg strength is available over- the-counter, as well as the elixir. This antihistamine is used for many symptoms. It's useful for itching, watering eyes and nose, allergic swelling, hives, and insect stings. The medication can be repeated four times daily. Age Elixir (12.5 mg/tsp) 25 mg pill adult 1-2 tabs Antihistamines may cause drowsiness, especially with the first dose. Do not operate machinery or drive while under the effects of the medication. Do not combine the medication with alcohol, or with any other medication without talking to your doctor. FOLLOW-UP CARE: If you have been referred to a physician for follow-up care, call the physicians office for an appointment as you were instructed or within the next two days. If you experience worsening or a significant change in your symptoms, notify the physician immediately or return to the Emergency Department at any time for re-evaluation. Forms: Return to Work
[2018-11-16 14:17] VITALS: BP 118/75
--- NOTE | 2018-11-17 09:46 | EKG REPORT ---
SEVERITY:- OTHERWISE NORMAL ECG - SINUS BRADYCARDIA BORDERLINE RIGHT AXIS DEVIATION : Confirmed by: Paulette Loyd 17-Nov-2018 09:45:45
== END 2018-11-16 14:17 | disposition home or self-care (01) ==
LOC: ER 11:56
DX: T63.461A Toxic effect of venom of wasps, accidental (unintentional), initial encounter (principal); T78.40XA Allergy, unspecified, initial encounter; R06.00 Dyspnea, unspecified; R07.89 Other chest pain; F17.200 Nicotine dependence, unspecified, uncomplicated
CPT/HCPCS: 93005; 71046; 93010; J1200; J2930; S0028; 96374; 96375; 99283

== ENCOUNTER 2018-12-16 10:27 | Emergency (ER) | payer OTHER ==
[2018-12-16] MEDS ORDERED: IBUPROFEN 800 MG TABLET PO ONE (10:56)
--- NOTE | 2018-12-16 10:57 | ER Document Report ---
HPI - HPI Patient complains to provider of: Left wrist pain Time Seen by Provider: 12/16/18 10:51 Onset: Yesterday Onset/Duration: Gradual Quality of pain: Achy Pain Level: 4 Context: Patient states that he was using a leaf blower yesterday, holding it with his left hand. Patient complains of left wrist tenderness today. Patient denies any specific injury. Patient denies any increase in his physical activities. Patient states that he does have a history of retained pellets in the left hand and wrist area. Patient is uncertain if these may be causing his pain symptoms. Associated Symptoms: Other - Left wrist pain Exacerbated by: Movement Relieved by: Remaining still Similar symptoms previously: No Recently seen / treated by doctor: No - ROS ROS below otherwise negative: Yes Systems Reviewed and Negative: Yes All other systems reviewed and negative - NEURO Neurology: DENIES: Weakness - GASTROINTESTINAL Gastrointestinal: DENIES: Nausea - MUSCULOSKELETAL Musculoskeletal: REPORTS: Extremity pain, Swelling - DERM Skin Color: Normal Skin Problems: None Past Medical History - General Information source: Patient - Social History Smoking Status: Current Every Day Smoker Smoking Education Provided: Yes Frequency of alcohol use: Occasional Drug Abuse: None Occupation: [employer] Lives with: Family Family History: Reviewed & Not Pertinent, DM - Medical History Medical History: Negative Renal/ Medical History: Reports: Hx Peritoneal Dialysis Surgical Hx: Negative - Immunizations Immunizations up to date: No Hx Diphtheria, Pertussis, Tetanus Vaccination: Yes Vertical Provider Document - CONSTITUTIONAL Agree With Documented VS: Yes Exam Limitations: No Limitations General Appearance: WD/WN, No Apparent Distress - INFECTION CONTROL TRAVEL OUTSIDE OF THE [place] IN LAST 30 DAYS: No - HEENT HEENT: Atraumatic, Normocephalic - NECK Neck: Normal Inspection - RESPIRATORY Respiratory: No Respiratory Distress - CARDIOVASCULAR Pulses: Normal: Radial - MUSCULOSKELETAL/EXTREMETIES Musculoskeletal/Extremeties: MAEW, Tender - Left wrist tenderness over distal radius with 1+ edema. Normal skin color and temperature overlying joint., Edema. negative: Eccymosis - NEURO Level of Consciousness: Awake, Alert, Appropriate Motor/Sensory: No Motor Deficit, No Sensory Deficit Notes: No radial, ulnar median nerve deficit - DERM Integumentary: Warm, Dry, No Rash Course - Re-evaluation Re-evalutation: 12/16/18 12:09 Patient does report increased wrist pain after using a leaf blower yesterday. Patient does have retained foreign bodies from an injury from years prior. Patient has some subtle swelling over the distal radius but does coincide with where the retained foreign body is located. No overlying erythema. Patient encouraged to follow-up with orthopedic surgeon for further evaluation as he may need to have foreign body removed as it is becoming symptomatic for him. - Vital Signs Vital signs: Temp Pulse Resp BP Pulse Ox 98.9 F 74 16 136/79 H 95 12/16/18 10:32 12/16/18 10:32 12/16/18 10:32 12/16/18 10:32 12/16/18 10:32 - Diagnostic Test Radiology reviewed: Image reviewed, Reports reviewed Procedures - Immobilization Left Wrist Pre-Proc Neuro Vasc Exam: Normal Immobilizer type: Cock-up Performed by: PCT Post-Proc Neuro Vasc Exam: Normal Alignment checked and good: Yes Discharge - Discharge Clinical Impression: Tendonitis Foreign body of wrist Qualifiers: Encounter type: initial encounter Laterality: left Qualified Code(s): S60.852A - Superficial foreign body of left wrist, initial encounter Condition: Stable Disposition: HOME, SELF-CARE Instructions: Temporary Splint ([facility]), Tendonitis ([facility]) Additional Instructions: Return immediately for any new or worsening symptoms Followup with your primary care provider, call tomorrow to make a followup appointment Follow-up with orthopedics for further evaluation, call today to make a follow- up appointment. You may need to have the foreign body removed so that you do not have recurring wrist pain in the future. Prescriptions: Naproxen [Naprosyn 250 Nmg Tablet] 1 tab PO BID #14 tablet Forms: Smoking Cessation Education, Return to Work Referrals: PEGGY MORRISON JR, DO [ACTIVE PROVISIONAL STAFF] - Follow up as needed [facility] [Provider Group] - Follow up as needed
--- NOTE | 2018-12-16 11:41 | RADIOLOGY REPORT (SQ) ---
EXAM DESCRIPTION: WRIST LEFT 3 VIEWS COMPLETED DATE/TIME: 12/16/2018 11:27 am REASON FOR STUDY: L wrist pain COMPARISON: None. NUMBER OF VIEWS: Three views. TECHNIQUE: AP, lateral, and oblique radiographic images acquired of the left wrist. LIMITATIONS: None. FINDINGS: MINERALIZATION: Normal. BONES: No acute fracture or dislocation. No worrisome bone lesions. Normal alignment. SOFT TISSUES: Metallic shot are seen adjacent to the 4th metacarpal and to the distal radius. OTHER: No other significant finding. IMPRESSION: Foreign bodies as described. No acute osseous finding. TECHNICAL DOCUMENTATION: JOB ID: [id number] [employer]- All Rights Reserved Reading location - IP/workstation name: [email or web address]
[2018-12-16 12:40] VITALS: BP 119/60
== END 2018-12-16 12:45 | disposition home or self-care (01) ==
LOC: ER 10:27
DX: M79.5 Residual foreign body in soft tissue (principal); M77.9 Enthesopathy, unspecified; M25.532 Pain in left wrist; M79.89 Other specified soft tissue disorders; F17.200 Nicotine dependence, unspecified, uncomplicated
CPT/HCPCS: 99283; 73110; L3908

== ENCOUNTER 2019-06-20 14:39 | Emergency (ER) | payer SELFPAY ==
[2019-06-20 15:30] LABS: ABSOLUTE EOSINOPHILS # (AUTO) 0.1 10^3/uL (0.0-0.6); ABSOLUTE LYMPHOCYTES (AUTO) 1.7 10^3/uL (0.5-4.7); ABSOLUTE MONOCYTES (AUTO) 0.4 10^3/uL (0.1-1.4); ABSOLUTE NEUT (AUTO) 1.7 10^3/uL (1.7-8.2); BASOPHILS % (AUTO) 1.1 % (0-2); EOSINOPHILS % (AUTO) 2.9 % (0-6); HEMATOCRIT 43.7 % (37.9-51.0); HEMOGLOBIN 14.8 g/dL (13.5-17.0); LYMPHOCYTES % (AUTO) 43.2 % (13-45); MEAN CORPUSCULAR HEMOGLOBIN 34.1 pg (27.0-33.4); MEAN CORPUSCULAR HGB CONC 33.8 g/dL (32.0-36.0); MEAN CORPUSCULAR VOLUME 101 fl (80-97); MONOCYTES % (AUTO) 10.8 % (3-13); PLATELET COUNT 366 10^3/uL (150-450); RED BLOOD COUNT 4.33 10^6/uL (4.35-5.55); RED CELL DISTRIBUTION WIDTH 13.2 % (11.5-14.0); TOTAL CELLS COUNTED % (AUTO) 100 %
[2019-06-20 15:41] LABS: AMORPHOUS SEDIMENT,URINE TRACE /HPF; APPEARANCE,URINE CLOUDY; BILIRUBIN,URINE NEGATIVE (NEGATIVE); COLOR,URINE YELLOW; GLUCOSE, URINE NEGATIVE (NEGATIVE); KETONES,URINE NEGATIVE (NEGATIVE); LEUKOCYTE ESTERASE,URINE NEGATIVE (NEGATIVE); NITRITE,URINE NEGATIVE (NEGATIVE); PROTEIN,URINE NEGATIVE (NEGATIVE); URINE SPECIFIC GRAVITY 1.023
--- NOTE | 2019-06-20 15:46 | RADIOLOGY REPORT (SQ) ---
EXAM DESCRIPTION: CT ABD/PELVIS NO ORAL OR IV COMPLETED DATE/TIME: 06/20/2019 3:29 pm REASON FOR STUDY: pain COMPARISON: None. TECHNIQUE: CT scan of the abdomen and pelvis performed without intravenous or oral contrast. Images reviewed with lung, soft tissue, and bone windows. Reconstructed coronal and sagittal MPR images revi ewed. All images stored on PACS. All CT scanners at this facility use dose modulation, iterative reconstruction, and/or weight based d osing when appropriate to reduce radiation dose to as low as reasonably achievable (ALARA). [facility]: Dose Right [facility]: CareDose [facility]: Dose Right [facility]: Teradose 4D [facility]: Smart [email or web address] RADIATION DOSE: CT Rad equipment meets quality standard of care and radiation dose reduction techniq ues were employed. CTDIvol: 4.8 mGy. DLP: 249 mGy-cm.mGy. LIMITATIONS: None. FINDINGS: LOWER CHEST: No significant findings. No nodules or infiltrates. NON-CONTRASTED LIVER, SPLEEN, ADRENALS: Evaluation limited by lack of IV contrast. No identified sign ificant masses. PANCREAS: No masses. No peripancreatic inflammatory changes. GALLBLADDER: No identified stones by CT criteria. No inflammatory changes to suggest cholecystitis. RIGHT KIDNEY AND URETER: No suspicious masses. Assessment limited by lack of IV contrast. No signif icant calcifications. No hydronephrosis or hydroureter. LEFT KIDNEY AND URETER: No suspicious masses. Assessment limited by lack of IV contrast. No signifi cant calcifications. No hydronephrosis or hydroureter. AORTA AND RETROPERITONEUM: No aneurysm. No retroperitoneal masses or adenopathy. BOWEL AND PERITONEAL CAVITY: No obvious masses or inflammatory changes. No free fluid. APPENDIX: Not visualized. PELVIS, BLADDER, AND ABDOMINAL WALL:No abnormal masses. No free fluid. Bladder normal. BONES: No significant findings. Incidental note is made of transitional lumbosacral anatomy. OTHER: No other significant finding. IMPRESSION: NO SIGNIFICANT OR ACUTE PROCESS IN THE ABDOMEN OR PELVIS. COMMENT: Quality ID # 436: Final reports with documentation of one or more dose reduction techniques (e.g., Automated exposure control, adjustment of the mA and/or kV according to patient size, use of iterative reconstruction technique) TECHNICAL DOCUMENTATION: JOB ID: [id number] 2010 [employer]- All Rights Reserved Reading location - IP/workstation name: [email or web address]
[2019-06-20 15:50] LABS: BLOOD UREA NITROGEN 12 mg/dL (7-20); CALCIUM 9.4 mg/dL (8.4-10.2); CARBON DIOXIDE 29 mmol/L (22-30); CHLORIDE 103 mmol/L (98-107); GLUCOSE 70 mg/dL (75-110); POTASSIUM 4.7 mmol/L (3.6-5.0)
[2019-06-20 15:51] LABS: ALBUMIN 4.6 g/dL (3.5-5.0); ALKALINE PHOSPHATASE 56 U/L (38-126); ANION GAP 8 (5-19); ASPARTATE AMINO TRANSFERASE 22 U/L (17-59); BILIRUBIN,TOTAL 1.1 mg/dL (0.2-1.3)
--- NOTE | 2019-06-20 16:09 | ER Document Report ---
HPI - HPI Time Seen by Provider: 06/20/19 14:57 Onset: Just prior to arrival Onset/Duration: Gone - This is a 28-year-old male presented to the emergency room today with lower abdominal discomfort and constipation which is been ongoing for about 4 days. He has no nausea or vomiting. Pain Level: 3 Associated Symptoms: None Exacerbated by: Denies Relieved by: Denies - REPRODUCTIVE Reproductive: DENIES: : Past Medical History - General Information source: Patient - Social History Smoking Status: Current Every Day Smoker Chew tobacco use (# tins/day): No Frequency of alcohol use: None Drug Abuse: None Family History: Reviewed & Not Pertinent, DM Patient has suicidal ideation: No Patient has homicidal ideation: No - Past Medical History Cardiac Medical History: Denies: Hx Coronary Artery Disease, Hx Hypercholesterolemia, Hx Hypertension, Hx Pulmonary Embolism Pulmonary Medical History: Denies: Hx Asthma Renal/ Medical History: Reports: Hx Peritoneal Dialysis - Immunizations Immunizations up to date: No Hx Diphtheria, Pertussis, Tetanus Vaccination: Yes Vertical Provider Document - CONSTITUTIONAL Agree With Documented VS: Yes - INFECTION CONTROL TRAVEL OUTSIDE OF THE [place] IN LAST 30 DAYS: No - HEENT HEENT: Atraumatic, Conjuctival Injection, Normocephalic, PERRLA - RESPIRATORY Respiratory: Breath Sounds Normal - CARDIOVASCULAR Cardiovascular: Regular Rhythm Pulses: Normal: Brachial, Radial, Carotid, Femoral, Popliteal Course - Vital Signs Vital signs: Temp Pulse Resp BP Pulse Ox 98 F 58 L 16 122/58 L 100 06/20/19 14:56 06/20/19 14:56 06/20/19 14:56 06/20/19 14:56 06/20/19 14:56 - Laboratory Result Diagrams: 06/20/19 15:05 06/20/19 15:05 Laboratory results interpreted by me: 06/20/19 06/20/19 06/20/19 15:05 15:05 15:05 RBC 4.33 L MCV 101 H MCH 34.1 H Glucose 70 L Urine Urobilinogen 4.0 H - Diagnostic Test Radiology results interpreted by me: 06/20/19 16:06 Abdomen/Pelvis CT 06/20/19 15:02 IMPRESSION: NO SIGNIFICANT OR ACUTE PROCESS IN THE ABDOMEN OR PELVIS. Discharge - Discharge Clinical Impression: Abdominal fullness Condition: Fair Disposition: HOME, SELF-CARE Additional Instructions: Clear liquids for 24 hours. Slowly advance to a brat diet. Increase fluid intake. Rest. Return to the emergency room for absolutely any change worsening condition. Must follow-up with PMD or here in the department and 12 hours for reevaluation of abdominal pain. Prescriptions: Hyoscyamine Sulfate [Levsin 0.125 Tablet] 0.125 mg PO Q4 PRN #20 tablet PRN Reason: SPASM Magnesium Hydroxide [Milk of Magnesia] 2,400 mg PO TID #120 oral.susp Referrals: [facility] [Provider Group] - Follow up as needed
[2019-06-20 16:44] VITALS: BP 107/57
== END 2019-06-20 16:44 | disposition home or self-care (01) ==
LOC: ER 14:39
DX: R10.30 Lower abdominal pain, unspecified (principal); R14.0 Abdominal distension (gaseous); K59.00 Constipation, unspecified; F17.200 Nicotine dependence, unspecified, uncomplicated
CPT/HCPCS: 36415; 74176; 80053; 81001; 83690; 85025; 99284

== ENCOUNTER 2019-07-06 15:57 | Emergency (ER) | payer SELFPAY ==
[2019-07-06] MEDS ORDERED: HYDROCODONE/ACETAMINOPHEN 5-325 MG TABLET PO ONE (16:05)
[2019-07-06] MEDS ORDERED: METHOCARBAMOL 750 MG TABLET PO ONE (16:05)
[2019-07-06 16:06] VITALS: BP 124/64
--- NOTE | 2019-07-06 16:08 | ER Document Report ---
HPI - HPI Time Seen by Provider: 07/06/19 16:01 Notes: 28-year-old male patient presenting with right scapular pain. Patient reports this is been ongoing for a few days. 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 He denies any chest pain or shortness of breath. - REPRODUCTIVE Reproductive: DENIES: : Past Medical History - General Information source: Patient - Social History Smoking Status: Never Smoker Frequency of alcohol use: None Drug Abuse: None Family History: Reviewed & Not Pertinent, DM - Medical History Medical History: Negative - Past Medical History Cardiac Medical History: Denies: Hx Coronary Artery Disease, Hx Hypercholesterolemia, Hx Hypertension, Hx Pulmonary Embolism Pulmonary Medical History: Denies: Hx Asthma Renal/ Medical History: Reports: Hx Peritoneal Dialysis - Immunizations Immunizations up to date: No Hx Diphtheria, Pertussis, Tetanus Vaccination: Yes Vertical Provider Document - CONSTITUTIONAL Notes: PHYSICAL EXAMINATION: GENERAL: Well-appearing, well-nourished and in no acute distress. HEAD: Atraumatic, normocephalic. EYES: Pupils equal round extraocular movements intact, conjunctiva are normal. ENT: Nares patent NECK: Normal range of motion LUNGS: No respiratory distress Musculoskeletal: Normal range of motion, tenderness to palpation over the left scapular area, strong radial pulses, extremity is warm. No obvious deformity. Likely musculoskeletal strain. NEUROLOGICAL: Normal speech, normal gait. PSYCH: Normal mood, normal affect. SKIN: Warm, Dry, normal turgor, no rashes or lesions noted. - INFECTION CONTROL TRAVEL OUTSIDE OF THE [place] IN LAST 30 DAYS: No Course - Re-evaluation Re-evalutation: Exam consistent with musculoskeletal strain. Patient will be prescribed ibuprofen and muscle relaxers. Patient is in agreements with this plan. Discharge - Discharge Clinical Impression: Pain of right scapula Condition: Stable Disposition: HOME, SELF-CARE Additional Instructions: Please take muscle relaxer as prescribed. Please also take ibuprofen 600 mg. I wrote a prescription for this in case the store is out of ibuprofen, and if you can find it cheaper you can purchase [id number] and just take 3 of them to equal 600 mg. Please apply ice and or heat to the area. Massage may help. Prescriptions: Ibuprofen [Motrin 600 mg Tablet] 600 mg PO Q6H #40 tablet Methocarbamol [Robaxin 750 mg Tablet] 750 mg PO Q4 #30 tablet Forms: Return to Work
== END 2019-07-06 16:12 | disposition home or self-care (01) ==
LOC: ER 15:57
DX: M89.8X1 Other specified disorders of bone, shoulder (principal)
CPT/HCPCS: 99283; J3490

== ENCOUNTER 2019-08-10 08:39 | Emergency (ER) | payer SELFPAY ==
[2019-08-10] MEDS ORDERED: PENICILLIN V POTASSIUM 500 MG TABLET PO ONE (09:34)
[2019-08-10] MEDS ORDERED: ACETAMINOPHEN 325 MG TABLET PO ONE (09:35)
--- NOTE | 2019-08-10 09:38 | ER Document Report ---
ED Oral Problem - General Chief Complaint: Toothache Stated Complaint: DENTAL PAIN Time Seen by Provider: 08/10/19 09:28 Notes: CHIEF COMPLAINT: Dental pain for 2 days HPI: 28-year-old male with history of alcohol and cocaine use presenting for dental pain left lower jaw for 2 days without fever. States he has had problems with the tooth in the left lower mouth for years. Denies other complaints at this time ROS: See HPI - all other systems were reviewed and are otherwise negative Constitutional: no fever Eyes: no drainage, no blurred vision ENT: no runny nose, no sore throat, positive dental pain Integumentary: no rash Allergy: no hives MEDICATIONS: I agree with the patient medications as charted by the RN. ALLERGIES: I agree with the allergies as charted by the RN. PAST MEDICAL HISTORY/PAST SURGICAL HISTORY: Reviewed and agree as charted by RN. SOCIAL HISTORY: Reviewed and agree as charted by RN. FAMILY HISTORY: No significant familial comorbid conditions directly related to patient complaint EXAM: Reviewed vital signs as charted by RN. CONSTITUTIONAL: Alert and oriented and responds appropriately to questions. Well-appearing; well-nourished HEAD: Normocephalic; atraumatic EYES: PERRL; Conjunctivae clear, sclerae non-icteric ENT: normal nose; no rhinorrhea; moist mucous membranes; pharynx without lesions noted, no uvula edema or deviation, no tonsillar hypertrophy, phonation normal. No trismus. No sublingual swelling. There is moderate dental caries to the left lower first molar on the medial aspect of the tooth. No visible facial swelling or erythema. Phonation is normal NECK: Supple without meningismus; non-tender; no cervical lymphadenopathy, no masses CARD: Capillary refill less than 3 seconds, symmetric distal pulses RESP: Normal chest excursion without splinting or tachypnea ABD/GI: non-distended BACK: The back appears normal EXT: Normal ROM in all joints; no cyanosis, no effusions, no edema SKIN: Normal color for age and race; warm; dry; good turgor NEURO: Moves all extremities equally; Motor and sensory function intact PSYCH: The patient's mood and manner are appropriate. Grooming and personal hygiene are appropriate. MDM: 28-year-old male with dental caries causing dental pain. Will start on antibiotics, anti-inflammatories given the patient's drug use history follow-up dental TRAVEL OUTSIDE OF THE [place] IN LAST 30 DAYS: No - Related Data Allergies/Adverse Reactions: bee venom protein (honey bee) Allergy (Verified 06/20/19 14:56) Past Medical History - Social History Smoking Status: Current Every Day Smoker Frequency of alcohol use: Heavy Drug Abuse: Cocaine, Marijuana Family History: Reviewed & Not Pertinent, DM Patient has homicidal ideation: No - Past Medical History Cardiac Medical History: Denies: Hx Coronary Artery Disease, Hx Hypercholesterolemia, Hx Hypertension, Hx Pulmonary Embolism Pulmonary Medical History: Denies: Hx Asthma Renal/ Medical History: Reports: Hx Peritoneal Dialysis - Immunizations Immunizations up to date: No Hx Diphtheria, Pertussis, Tetanus Vaccination: Yes Physical Exam - Vital signs Vitals: Temp 98.0 F 08/10/19 08:39 Course - Vital Signs Vital signs: Temp Pulse Resp BP Pulse Ox 98.0 F 72 18 142/96 H 100 08/10/19 08:48 08/10/19 08:48 08/10/19 08:48 08/10/19 08:48 08/10/19 08:48 Discharge - Discharge Clinical Impression: Pain due to dental caries Condition: Stable Disposition: HOME, SELF-CARE Instructions: Toothache ([facility]) Additional Instructions: Follow-up with a dentist of your choice for further and definitive management of the dental caries. Take the medications as prescribed. Return to the emergency department if you develop fever greater than 101 or significant facial or neck swelling Prescriptions: Naproxen 500 mg PO BID PRN #14 tablet PRN Reason: Penicillin V Potassium [Penicillin Vk 500 mg Tablet] 500 mg PO BID #20 tablet
[2019-08-10 11:35] VITALS: BP 133/84
== END 2019-08-10 11:10 | disposition home or self-care (01) ==
LOC: ER 08:39
DX: K02.9 Dental caries, unspecified (principal); F17.200 Nicotine dependence, unspecified, uncomplicated
CPT/HCPCS: 99282

== ENCOUNTER 2019-09-23 10:07 | Emergency (ER) | payer SELFPAY ==
[2019-09-23 10:12] VITALS: BP 124/65
[2019-09-23] MEDS ORDERED: KETOROLAC TROMETHAMINE 60 MG/2 ML SDV IM ONE (11:05)
--- NOTE | 2019-09-23 11:12 | ER Document Report ---
HPI - HPI Time Seen by Provider: 09/23/19 10:37 Pain Level: 4 Notes: 28-year-old male presents to the emergency room presents for evaluation of toothache for the last 3 weeks the left side of his lower mouth. Patient has a history of a fracture to his left lower mandible. Patient has yet to follow-up with a dentist. Patient is a everyday smoker. Reports pain is 4 out of 5. Denies fevers, chills, chest pain,palpitations, shortness of breath, dyspnea, nausea, vomiting, diarrhea, abdominal pain, hematuria,blurred vision, double vision, loss of vision, speech changes, LH, dizziness, syncope, headaches, wheezing, ST, URI, neck pain, weakness, bowel or bladder dysfunction, saddle anesthesia, numbness or tingling in bilateral upper or lower extremities equally, muscle paralysis, weakness in bilateral upper or lower extremities equally or rash. Denies IV drug use. - REPRODUCTIVE Reproductive: DENIES: : Past Medical History - General Information source: Patient - Social History Smoking Status: Current Every Day Smoker Chew tobacco use (# tins/day): No Drug Abuse: Cocaine, Marijuana Family History: Reviewed & Not Pertinent, DM Patient has homicidal ideation: No - Past Medical History Cardiac Medical History: Denies: Hx Coronary Artery Disease, Hx Hypercholesterolemia, Hx Hypertension, Hx Pulmonary Embolism Pulmonary Medical History: Denies: Hx Asthma Renal/ Medical History: Reports: Hx Peritoneal Dialysis - Immunizations Immunizations up to date: No Hx Diphtheria, Pertussis, Tetanus Vaccination: Yes Vertical Provider Document - CONSTITUTIONAL Agree With Documented VS: Yes Exam Limitations: No Limitations General Appearance: WD/WN Notes: MEDICATIONS: I agree with the patient medications as charted by the RN. ALLERGIES: I agree with the allergies as charted by the RN. PAST MEDICAL HISTORY/PAST SURGICAL HISTORY: Reviewed and agree as charted by RN. SOCIAL HISTORY: Reviewed and agree as charted by RN. FAMILY HISTORY: No significant familial comorbid conditions directly related to patient complaint EXAM: Reviewed vital signs as charted by RN. PHYSICAL EXAMINATION:reviewed vital signs by RN GENERAL: Well-appearing, well-nourished and in no acute distress. HEAD: Atraumatic, normocephalic. EYES: Pupils equal round and reactive to light, extraocular movements intact, sclera anicteric, conjunctiva are normal. ENT: Nares patent, oropharynx clear without exudates. Moist mucous membranes. TM with effusion bilaterally, no erythema. TMs intact. #19 gingiva with swelling, erythema and induration with fractured tooth. No drainage or open wounds. No fluctuance. No facial swelling. Poor oral dentition, left lower jaw with miild dental caries, no definite swelling or effusion. no trismus noted. Uvula is midline NECK: Normal range of motion, supple without lymphadenopathy LUNGS: Breath sounds clear to auscultation bilaterally and equal. No wheezes rales or rhonchi. HEART: Regular rate and rhythm without murmurs ABDOMEN: Soft, nontender, nondistended abdomen. No guarding, no rebound. No masses appreciated. Musculoskeletal: Normal range of motion, no pitting or edema. No cyanosis. NEUROLOGICAL: Cranial nerves grossly intact. Normal speech, normal gait. Normal sensory, motor exams PSYCH: Normal mood, normal affect. SKIN: Warm, Dry, normal turgor, no rashes or lesions noted. - INFECTION CONTROL TRAVEL OUTSIDE OF THE [place] IN LAST 30 DAYS: No Course - Re-evaluation Re-evalutation: 09/23/19 18:04 Afebrile vital stable no distress. Nurses notes reviewed. Discussed with patient that he does need to follow-up with dentist for dental care, to avoid smoking. Patient given 60 mg of Toradol IM. List of dentists given at the [facility] for him to follow-up with. Will prescribe patient antibiotics due to the lack of him having any dental care. After performing a Medical Screening Examination, I estimate there is LOW risk for a DEEP SPACE INFECTION (e.g., SARMAD'S ANGINA OR RETROPHARYNGEAL ABSCESS), MENINGITIS, INTRACRANIAL HEMORRHAGE, or AIRWAY COMPROMISE, thus I consider the discharge disposition reasonable. Also, there is no evidence or peritonitis, sepsis, or toxicity. I have reevaluated this patient multiple times and no significant life threatening changes are noted. The patient and I have discussed the diagnosis and risks, and we agree with discharging home with close follow-up with the understanding that symptoms and presentations can change. We also discussed returning to the Emergency Department immediately if new or worsening symptoms occur. We have discussed the symptoms which are most concerning (e.g., changing or worsening pain, trouble swallowing or breathing, neck stiffness or fever) that necessitate immediate return. - Vital Signs Vital signs: Temp Pulse Resp BP Pulse Ox 97.6 F 61 16 124/65 96 09/23/19 10:11 09/23/19 10:11 09/23/19 10:11 09/23/19 10:11 09/23/19 10:11 Discharge - Discharge Clinical Impression: Toothache Condition: Stable Disposition: HOME, SELF-CARE Instructions: [facility], Dentist, Penicillin V K ([facility]), Toothache ([facility]) Additional Instructions: Return immediately for any new or worsening symptoms. Follow up with primary care provider, call tomorrow to make followup appointment. Prescriptions: Penicillin V Potassium [Penicillin Vk 500 mg Tablet] 500 mg PO BID #20 tablet Referrals: ANDREI KYE MD [COMMUNITY BASED STAFF] - Follow up as needed
== END 2019-09-23 11:08 | disposition home or self-care (01) ==
LOC: ER 10:07
DX: K08.89 Other specified disorders of teeth and supporting structures (principal); F17.200 Nicotine dependence, unspecified, uncomplicated; F14.10 Cocaine abuse, uncomplicated; F12.10 Cannabis abuse, uncomplicated
CPT/HCPCS: 99282; 96372; J1885

== ENCOUNTER 2019-10-01 00:59 | Inpatient (IN) | payer SELFPAY ==
[2019-10-01 02:01] LABS: APPEARANCE,URINE SLIGHTLY-CLOUDY; BILIRUBIN,URINE NEGATIVE (NEGATIVE); COLOR,URINE YELLOW; GLUCOSE, URINE NEGATIVE (NEGATIVE); KETONES,URINE NEGATIVE (NEGATIVE); LEUKOCYTE ESTERASE,URINE NEGATIVE (NEGATIVE); NITRITE,URINE NEGATIVE (NEGATIVE); PROTEIN,URINE 100 mg/dL (NEGATIVE); URINE SPECIFIC GRAVITY 1.023; UROBILINOGEN,URINE NEGATIVE mg/dL (<2.0)
--- NOTE | 2019-10-01 02:27 | RADIOLOGY REPORT (SQ) ---
EXAM DESCRIPTION: XR CHEST 1 VIEW COMPLETED DATE/TME: 10/01/2019 01:40 CLINICAL HISTORY: 28 years, Male, AMS COMPARISON: 10/22/2016 chest NUMBER OF VIEWS: 1 TECHNIQUE: Portable chest LIMITATIONS: None. FINDINGS: Heart size is normal. The lungs are clear. There is no pneumothorax IMPRESSION: Negative chest copyright 2010 [employer]- All Rights Reserved
--- NOTE | 2019-10-01 02:27 | RADIOLOGY REPORT (SQ) ---
EXAM DESCRIPTION: CT HEAD WITHOUT IV CONTRAST COMPLETED DATE/TME: 10/01/2019 01:40 CLINICAL HISTORY: 28 years, Male, AMS COMPARISON: None. TECHNIQUE: 210 Images stored on PACS. All CT scanners at this facility use dose modulation, iterative reconstruction, and/or weight based dosing when appropriate to reduce radiation dose to as low as reasonably achievable (ALARA). [facility]: Dose Right [facility]: CareDose [facility]: Dose Right [facility]: Teradose 4D [facility]: Pongr LIMITATIONS: None. FINDINGS: The globes are intact. Polyp of the left maxillary sinus. Air fluid level of the right maxillary sinus. No displaced or depressed skull fracture. No intra or extra-axial hemorrhage. CT is limited for evaluation of acute infarct. No CT evidence for large or territorial acute infarct. No mass. No midline shift IMPRESSION: Right maxillary sinusitis. No acute intracranial abnormality TECHNICAL DOCUMENTATION: Quality ID # [id number]: Final reports with documentation of one or more dose reduction techniques (e.g., Automated exposure control, adjustment of the mA and/or kV according to patient size, use of iterative reconstruction technique) copyright 2011 [employer]- All Rights Reserved
[2019-10-01 02:42] LABS: HEMATOCRIT 42.7 % (37.9-51.0); HEMOGLOBIN 14.5 g/dL (13.5-17.0); MEAN CORPUSCULAR HEMOGLOBIN 34.3 pg (27.0-33.4); MEAN CORPUSCULAR HGB CONC 33.9 g/dL (32.0-36.0); MEAN CORPUSCULAR VOLUME 101 fl (80-97); RED BLOOD COUNT 4.22 10^6/uL (4.35-5.55); WHITE BLOOD COUNT 20.2 10^3/uL (4.0-10.5)
[2019-10-01 02:50] LABS: ALBUMIN 4.4 g/dL (3.5-5.0); ALCOHOL 34 mg/dL (NONE DETECTED); ALKALINE PHOSPHATASE 57 U/L (38-126); ASPARTATE AMINO TRANSFERASE 74 U/L (17-59); BILIRUBIN,TOTAL 0.5 mg/dL (0.2-1.3); BLOOD UREA NITROGEN 15 mg/dL (7-20); CALCIUM 9.4 mg/dL (8.4-10.2); CARBON DIOXIDE 17 mmol/L (22-30); CHLORIDE 103 mmol/L (98-107); GLUCOSE 100 mg/dL (75-110); POTASSIUM 3.7 mmol/L (3.6-5.0); TOTAL PROTEIN 6.9 g/dL (6.3-8.2)
[2019-10-01 02:56] LABS: ANION GAP 20 (5-19)
[2019-10-01 03:04] LABS: URINE AMPHETAMINES SCREEN NEGATIVE; URINE BARBITURATES SCREEN NEGATIVE; URINE BENZODIAZEPINES SCREEN UNCONFIRMED POSITIVE; URINE COCAINE SCREEN UNCONFIRMED POSITIVE; URINE MARIJUANA (THC) SCREEN UNCONFIRMED POSITIVE; URINE METHADONE SCREEN NEGATIVE; URINE PHENCYCLIDINE SCREEN NEGATIVE
--- NOTE | 2019-10-01 03:04 | ER Document Report ---
Entered by CARROLL ZAPATA SCRIBE 10/01/19 0146 Acting as scribe for:MARTIN GROVES IV, MD ED General - General Stated Complaint: FAINTING Time Seen by Provider: 10/01/19 01:18 Mode of Arrival: Medic Information source: Emergency Med Personnel Notes: This 28 year old male patient brought in by EMS presents to the ED today with complaints of unresponsiveness that occurred just prior to arrival. Per ED nurse, EMS reports that the patient's brother called 911 because he found the patient slumped over in vomit in the bedroom; unknown how long the patient was in this condition of if he took any drugs. EMS administered IN Narcan and the patient became responsive to sternal rub and painful stimuli; however, EMS report seizure-like activity shortly after administration. Patient then received Versed and Benadryl which seemed to stop the seizure-like activity. Upon ED arrival, patient is responsive to sternal rub and was incontinent of stool per ED nurse. TRAVEL OUTSIDE OF THE [place] IN LAST 30 DAYS: No - Related Data Allergies/Adverse Reactions: bee venom protein (honey bee) Allergy (Verified 06/20/19 14:56) Past Medical History - General Information source: [facility] Records Cannot obtain history due to: Altered mental status - Social History Smoking Status: Unknown if Ever Smoked Cigarette use (# per day): No Chew tobacco use (# tins/day): No Smoking Education Provided: No Family History: Reviewed & Not Pertinent, DM Renal/ Medical History: Reports: Hx Peritoneal Dialysis - Immunizations Immunizations up to date: No Hx Diphtheria, Pertussis, Tetanus Vaccination: Yes Review of Systems - Review of Systems -: Yes ROS unobtainable due to patient's medical condition Physical Exam - Vital signs Vitals: Resp Pulse Ox 19 98 10/01/19 01:03 10/01/19 01:03 - General General appearance: Other - Somnolent In distress: None - HEENT Head: Normocephalic, Atraumatic Eyes: Normal Pupils: Pinpoint - Respiratory Respiratory status: No respiratory distress Chest status: Nontender Breath sounds: Normal Chest palpation: Normal - Cardiovascular Rhythm: Regular Heart sounds: Normal auscultation Murmur: No Friction rub: No Gallop: None auscultated - Abdominal Inspection: Normal Distension: No distension Bowel sounds: Normal Tenderness: Nontender - Abdomen soft Organomegaly: No organomegaly - Back Back: Normal, Nontender - Extremities General upper extremity: Normal inspection General lower extremity: Normal inspection - Neurological Neuro grossly intact: Yes - Psychological Associated symptoms: Other - Unable to assess due to patient's medical condition - Skin Skin Temperature: Warm Skin Moisture: Dry Skin Color: Normal Course - Vital Signs Vital signs: Temp Pulse Resp BP Pulse Ox 13 124/65 97 10/01/19 05:01 10/01/19 05:00 10/01/19 05:01 - Laboratory Result Diagrams: 10/01/19 01:25 10/01/19 01:25 Laboratory results interpreted by me: 10/01/19 10/01/19 10/01/19 01:25 01:25 01:48 WBC 20.2 H RBC 4.22 L MCV 101 H MCH 34.3 H Seg Neuts % (Manual) 79 H Lymphocytes % (Manual) 12 L Abs Neuts (Manual) 16.0 H Abs Monocytes (Manual) 1.6 H Carbon Dioxide 17 L Anion Gap 20 H AST 74 H Urine Protein 100 H Urine Blood SMALL H - Diagnostic Test Radiology reviewed: Reports reviewed - EKG Interpretation by Me Additional EKG results interpreted by me: 10/01/19 05:53 EKG obtained on 09/30/2020 0107 hrs. was interpreted by this MD. Findings: Sinus tachycardia, rate 103, normal axis, P waves proceed QRS complexes, QRS complexes appear narrow, there are no obvious patterns of ST elevation or depression pre sent to suggest acute myocardial ischemia or infarction. Impression sinus tachycardia with nonspecific ST segments. Discharge - Discharge Clinical Impression: Polysubstance abuse Condition: Stable Disposition: HOME, SELF-CARE Additional Instructions: Return to the Emergency Department without delay if any worse. HOME CARE INSTRUCTIONS & INFORMATION: Thank you for choosing us for your medical needs. We hope you're satisfied with the care you received. After you leave, you must properly care for your problem and, at the same time, observe its progress. Any condition can change. Some illnesses can change rapidly over hours or days. If your condition worsens, return to the Emergency Department or see your physician promptly. ABOUT YOUR X-RAYS AND EKG'S: If you had an EKG or X-rays taken, they have been read by the Emergency Physician. The X-rays and EKG's will also be read by a Radiologist or Loan Supervisor within 24 hours. If discrepancies are noted, you will be notified by telephone. Please be certain the ED has a correct telephone number & address where you can be reached. Also, realize that some fractures or abnormalities do not show up on initial X-rays. If your symptoms continue, see your physician. ABOUT YOUR LABORATORY TEST: If you had laboratory tests, the results have been reviewed by the Emergency Physician. Some test results (for example cultures) may not be available for several days. You will be contacted if any test result shows you need additional treatment. Please be certain the ED has a correct t elephone number and address where you can be reached. ABOUT YOUR MEDICATIONS: You will receive instructions on how to take your medicine on the prescription label you receive. Additional information may be provided by the Pharmacy. If you have questions afterwards, call the ED for clarification or further instructions. Some prescribed medications may cause drowsiness. Do not perform tasks such as driving a car or operating machinery without consulting your Pharmacist. If you feel you need a refill of pain medication, your condition will need re-evaluation. Please do not call for a refill of any medication. ABOUT YOUR SIGNATURE: Signature of this document acknowledges to followin. Understanding that you received emergency treatment and that you may be released before al medical problems are known or treated. Please be certain the ED has a correct phone number & address where you can be reached. 2. Acknowledgement that you will arrange for follow-up care as recommended. 3. Authorization for the Emergency Physician to provide information to your follow-up Physician in order to maximize your care. AT ANY TIME, IF YOUR SYMPTOMS CHANGE SIGNIFICANTLY OR WORSEN OR YOU DEVELOP NEW SYMPTOMS, RETURN TO THE EMERGENCY DEPARTMENT IMMEDIATELY FOR RE-EVALUATION. OUR GOAL IS TO PROVIDE EXCELLENT MEDICAL CARE! WE HOPE THAT WE HAVE MET YOUR EXPECTATIONS DURING YOUR EMERGENCY DEPARTMENT VISIT AND THAT YOU FEEL YOU HAVE RECEIVED EXCELLENT CARE! Referrals: MAGNOLIA DUNBAR MD [HONORARY] - Follow up as needed I personally performed the services described in the documentation, reviewed and edited the documentation which was dictated to the scribe in my presence, and it accurately records my words and actions.
[2019-10-01 03:06] LABS: ABSOLUTE LYMPHOCYTES# (MANUAL) 2.6 10^3/uL (0.5-4.7); ABSOLUTE MONOCYTES # (MANUAL) 1.6 10^3/uL (0.1-1.4); BASOPHILS % (MANUAL) 0 % (0-2); EOSINOPHILS % (MANUAL) 0 % (0-6); LYMPHOCYTES % (MANUAL) 12 % (13-45); MONOCYTES % (MANUAL) 8 % (3-13); SEGMENTED NEUTROPHILS % (MAN) 79 % (42-78); TOTAL CELLS COUNTED 100
[2019-10-01 03:08] LABS: PLATELET CLUMPS PRESENT; PLATELET COMMENT ADEQUATE
[2019-10-01 03:09] LABS: PLATELET COUNT 363 10^3/uL (150-450)
[2019-10-01] MEDS ORDERED: LORAZEPAM INJ 2 MG/1 ML VIAL IM ONE (03:43)
[2019-10-01] MEDS ORDERED: DIPHENHYDRAMINE HCL 50 MG/ML VIAL IM ONE (03:44)
[2019-10-01] MEDS ORDERED: NALOXONE HCL INJ 2 MG/2 ML DISP.SYRIN IV ONE (07:10)
[2019-10-01] MEDS ORDERED: NALOXONE HCL INJ 2 MG/2 ML DISP.SYRIN ONE (07:11)
[2019-10-01] MEDS ORDERED: NALOXONE HCL INJ/PF 0.4 MG/1 ML SDV ONE (07:14)
[2019-10-01] MEDS ORDERED: LORAZEPAM INJ 2 MG/1 ML VIAL IV ONE (07:16)
[2019-10-01] MEDS ORDERED: NORMAL SALINE 1000 ML 1,000 ML IV ONE (07:28)
[2019-10-01] MEDS ORDERED: CEFTRIAXONE INJ 1000 MG VIAL IV ONE (07:29)
[2019-10-01] MEDS ORDERED: VANCOMYCIN HCL INJ 1000 MG VIAL IV ONE (07:30)
[2019-10-01] MEDS ORDERED: DEXTROSE 40% GEL 15 GM TUBE PO PRN ×2 (08:17)
[2019-10-01] MEDS ORDERED: ACETAMINOPHEN 650 MG SUPP.RECT PR PRN (08:17)
[2019-10-01] MEDS ORDERED: DEXTROSE 50%-WATER 25 GM/50 ML DISP.SYRIN IV PRN ×2 (08:17)
[2019-10-01] MEDS ORDERED: GLUCAGON,HUMAN RECOMB 1 MG INJ SUBCUT PRN (08:17)
[2019-10-01] MEDS ORDERED: ACETAMINOPHEN 325 MG TABLET PO PRN (08:17)
[2019-10-01] MEDS ORDERED: DEXTROSE 5%-WATER 1000 ML 1,000 ML with SODIUM BICARBONATE 50 MEQ IV PRN ×2 (08:17)
[2019-10-01] MEDS ORDERED: PROMETHAZINE HCL INJ 25 MG/1 ML VIAL IV PRN (08:17)
[2019-10-01 08:40] LABS: ARTERIAL BLOOD BASE EXCESS -0.7 mmol/L; ARTERIAL BLOOD H2CO3 1.42 mmol/L (1.05-1.35); ARTERIAL BLOOD HCO3 25.4 mmol/L (20-24); ARTERIAL BLOOD O2 SATURATION 97.8 % (94-98); ARTERIAL BLOOD PCO2 47.3 mmHg (35-45); ARTERIAL BLOOD PH 7.35 (7.35-7.45); ARTERIAL BLOOD PO2 111.1 mmHg (80-100); ARTERIAL BLOOD TOTAL CO2 26.9 mmol/L (23-27)
[2019-10-01 08:46] LABS: ARTERIAL BLOOD FIO2 2L
--- NOTE | 2019-10-01 08:48 | PDOC H&P ---
History of Present Illness Admission Date/PCP: 10/01/19 08:02 Patient complains of: Altered mental status History of Present Illness: JONATAN CASTILLO JR is a 28 year old male found down by his roommate. Unable to obtain history. Toxicology screen positive for opiates, benzodiazepines, marijuana, cocaine and alcohol level was 34. He is acidotic (ABG pending) and has a very slight anion gap. His AST is elevated and his white blood cell count is markedly elevated at 20,000. He did receive 1 dose of Narcan in the emergency department with limited effect. He will be admitted to the hospitalist service. We will correct his acidosis. We will continue aggressive IV fluids. Blood cultures and urinalysis with reflex to culture have been obtained as well. Chest x-ray and CT scan of the head were unremarkable. We will hold on antibiotic therapy at this time and recheck CBC and chemistries in 8 hours. Past Medical History Past Medical History: Unable to obtain due to patient's mental status Cardiac Medical History: Denies: Coronary Artery Disease, Hyperlipidema, Hypertension, Pulmonary Embolism Pulmonary Medical History: Denies: Asthma Psychiatric Medical History: Reports: Substance Abuse Past Surgical History Past Surgical History: Unable to obtain due to patient's mental status Social History Information Source: Emergency Med Personnel Lives with: Other - Unknown Smoking Status: Unknown if Ever Smoked Electronic Cigarette use?: No - Unknown at this time Frequency of Alcohol Use: Heavy - Unknown but likely heavy Hx Recreational Drug Use: Yes Drugs: Cocaine, Marijuana, Other - Opiates and benzodiazepines Hx Prescription Drug Abuse: No - Unknown at this time Past Social History Note: Due to patient's mental status specific details are unknown at this time - Advance Directive Resuscitation Status: Full Code Surrogate healthcare decision maker:: Due to patient's mental status will default to full code at this time Family History Family History: Reviewed & Not Pertinent, DM Parental Family History Reviewed: No - Due to mental status Children Family History Reviewed: No - Due to mental status Sibling(s) Family History Reviewed.: No - Due to mental status Medication/Allergy Home Medications: Unobtainable 10/01/19 Allergies/Adverse Reactions: bee venom protein (honey bee) Allergy (Verified 06/20/19 14:56) Review of Systems ROS unobtainable: Due to mental status Physical Exam Vital Signs: Temp Pulse Resp BP Pulse Ox 99.6 F 21 H 130/76 H 98 10/01/19 07:42 10/01/19 07:25 10/01/19 07:25 10/01/19 07:01 Intake & Output 09/30/19 10/01/19 10/02/19 06:59 06:59 06:59 Weight 74.2 kg General appearance: PRESENT: no acute distress, other - Minimally responsive. Barely opens eyes to verbal stimulus but does respond to painful stimulus Head exam: PRESENT: atraumatic, normocephalic Eye exam: PRESENT: conjunctiva pink. ABSENT: scleral icterus Ear exam: PRESENT: normal external ear exam. ABSENT: bleeding, drainage Mouth exam: PRESENT: other - Unable to assess but there does appear to be dried blood on his lips Neck exam: ABSENT: carotid bruit, JVD, lymphadenopathy Respiratory exam: PRESENT: clear to auscultation jacquelin, symmetrical, unlabored. ABSENT: rales, rhonchi, tachypnea, wheezes Cardiovascular exam: PRESENT: RRR, +S1, +S2. ABSENT: diastolic murmur, irregular rhythm, systolic murmur GI/Abdominal exam: PRESENT: normal bowel sounds, soft. ABSENT: distended, guarding, mass, tenderness Rectal exam: PRESENT: deferred Gentrourinary exam: ABSENT: indwelling catheter Extremities exam: ABSENT: joint swelling, pedal edema Musculoskeletal exam: PRESENT: normal inspection. ABSENT: deformity Neurological exam: PRESENT: altered - Minimally responsive. Unable to further assess. Psychiatric exam: ABSENT: agitated Focused psych exam: PRESENT: other - Obtunded Skin exam: PRESENT: dry, normal color, warm. ABSENT: rash Results Laboratory Results: 10/01/19 01:25 10/01/19 01:25 10/01/19 10/01/19 10/01/19 01:25 01:25 01:48 WBC 20.2 H RBC 4.22 L Hgb 14.5 Hct 42.7 MCV 101 H MCH 34.3 H MCHC 33.9 RDW 13.0 Plt Count 363 Seg Neutrophils % Not Reportable Sodium 139.8 Potassium 3.7 Chloride 103 Carbon Dioxide 17 L Anion Gap 20 H BUN 15 Creatinine 1.03 Est GFR ( Amer) > 60 Glucose 100 Calcium 9.4 Total Bilirubin 0.5 AST 74 H Alkaline Phosphatase 57 Total Protein 6.9 Albumin 4.4 Urine Color YELLOW Urine Appearance SLIGHTLY-CLOUDY Urine pH 5.0 Ur Specific [place]al 1.023 Urine Protein 100 H Urine Glucose (UA) NEGATIVE Urine Ketones NEGATIVE Urine Blood SMALL H Urine Nitrite NEGATIVE Ur Leukocyte Esterase NEGATIVE Urine WBC (Auto) 12 Urine RBC (Auto) 7 10/01/19 01:25 Troponin I 0.027 Impressions: Chest X-Ray 10/01/19 01:40 IMPRESSION: Negative chest copyright 2010 [employer]- All Rights Reserved Head CT 10/01/19 01:40 IMPRESSION: Right maxillary sinusitis. No acute intracranial abnormality TECHNICAL DOCUMENTATION: Quality ID # [id number]: Final reports with documentation of one or more dose reduction techniques (e.g., Automated exposure control, adjustment of the mA and/or kV according to patient size, use of iterative reconstruction technique) copyright 2010 [employer]- All Rights Reserved Assessment and Plan - Diagnosis (1) Toxic encephalopathy Is this a current diagnosis for this admission?: Yes Plan: 10/01/2019 Due to polypharmacy with multiple illicit medications and alcohol. Aggressive fluids and monitor closely. As needed medications for withdrawal from possibly alcohol and narcotics available. Will avoid scheduled medications at this time due to the patient's depressed level of consciousness. (2) Alcohol abuse Is this a current diagnosis for this admission?: Yes Plan: 10/01/2019 Alcohol level slightly increased at admission. It is impossible to know how much alcohol the patient drinks. Will monitor on CIWA scale with medications available as needed. We may eventually institute scheduled medications based on the patient's recovery. (3) Elevated transaminase level Is this a current diagnosis for this admission?: Yes Plan: 10/01/2019 Aggressive IV fluids. Repeat chemistries in the morning. (4) Leukocytosis Qualifiers: Leukocytosis type: unspecified Qualified Code(s): D72.829 - Elevated white blood cell count, unspecified Is this a current diagnosis for this admission?: Yes Plan: 10/01/2019 Unsure of exact etiology. EMS reported seizure-like activity. Cultures have been obtained. No antibiotics yet. (5) Drug overdose, multiple drugs Qualifiers: Encounter type: initial encounter Injury intent: undetermined intent Qualified Code(s): T50.914A - Poisoning by multiple unspecified drugs, medicamen ts and biological substances, undetermined, initial encounter Is this a current diagnosis for this admission?: Yes Plan: 10/01/2019 More than likely due to recreational use as opposed to suicide attempts. Will further assess when patient is able to communicate. Psychiatry will be seeing the patient as well. (6) Polysubstance abuse Is this a current diagnosis for this admission?: Yes Plan: 10/01/2019 We will offer and encourage substance abuse programs at discharge (7) Seizure Is this a current diagnosis for this admission?: Yes Plan: 10/01/2019 It is possible that the patient seized after the administration of Narcan. This happened prior to arrival at the hospital. Will monitor closely. No anti epileptic medication at this time other than as needed benzodiazepine therapy. (8) Metabolic acidosis Is this a current diagnosis for this admission?: Yes Plan: 10/01/2019 An ABG has been ordered. Bicarbonate infused fluids will be administered. - Time Time Spent with patient: 35 or more minutes Medications reviewed and adjusted accordingly: Yes - Inpatient Certification Based on my medical assessment, after consideration of the patient's comorbidities, presenting symptoms, or acuity I expect that the services needed warrant INPATIENT care.: Yes I certify that my determination is in accordance with my understanding of Medicare's requirements for reasonable and necessary INPATIENT services [42 CFR 412.3e].: Yes Medical Necessity: Need Close Monitoring Due to Risk of Patient Decompensation, Need For IV Fluids, Need For Continuous Telemetry Monitoring, Need for Pain C ontrol, Risk of Complication if Not Cared For in Hospital Post Hospital Care: D/C Horticulture Professor Documentation
[2019-10-01 08:54] LABS: BLOOD UREA NITROGEN 14 mg/dL (7-20); CALCIUM 9.1 mg/dL (8.4-10.2); CARBON DIOXIDE 26 mmol/L (22-30); GLUCOSE 99 mg/dL (75-110); POTASSIUM 4.3 mmol/L (3.6-5.0)
[2019-10-01 09:00] LABS: CHLORIDE 106 mmol/L (98-107)
[2019-10-01 09:01] LABS: ANION GAP 4 (5-19)
[2019-10-01] MEDS: PANTOPRAZOLE SODIUM 40 MG VIAL IV SCH (11:50)
[2019-10-01] MEDS ORDERED: LORAZEPAM INJ 2 MG/1 ML VIAL IV PRN (12:23)
[2019-10-01] MEDS ORDERED: HALOPERIDOL LACTATE INJ 5 MG/1 ML VIAL IV PRN (12:23)
[2019-10-01] MEDS: HEPARIN SOD (PORCINE) 5,000 UNIT/ML 1 ML VIAL SUBCUT SCH ×2 (13:15→21:35)
[2019-10-01 17:12] LABS: HEMATOCRIT 40.6 % (37.9-51.0); HEMOGLOBIN 13.9 g/dL (13.5-17.0); MEAN CORPUSCULAR HEMOGLOBIN 34.5 pg (27.0-33.4); MEAN CORPUSCULAR HGB CONC 34.2 g/dL (32.0-36.0); MEAN CORPUSCULAR VOLUME 101 fl (80-97); PLATELET COUNT 333 10^3/uL (150-450); RED BLOOD COUNT 4.03 10^6/uL (4.35-5.55); RED CELL DISTRIBUTION WIDTH 13.2 % (11.5-14.0); WHITE BLOOD COUNT 15.2 10^3/uL (4.0-10.5)
[2019-10-01 17:32] LABS: BLOOD UREA NITROGEN 8 mg/dL (7-20); CALCIUM 9.1 mg/dL (8.4-10.2); CARBON DIOXIDE 28 mmol/L (22-30); CHLORIDE 103 mmol/L (98-107); GLUCOSE 91 mg/dL (75-110); POTASSIUM 3.9 mmol/L (3.6-5.0)
[2019-10-01 17:51] LABS: ANION GAP 4 (5-19)
--- NOTE | 2019-10-01 19:36 | EKG REPORT ---
SEVERITY:- ABNORMAL ECG - SINUS TACHYCARDIA BIATRIAL ABNORMALITIES PROBABLE LEFT VENTRICULAR HYPERTROPHY : Confirmed by: Paulette Loyd 01-Oct-2019 19:35:31
[2019-10-01] MEDS: RINGERS SOLUTION,LACTATED 1,000 ML IV PRN (21:41)
[2019-10-02] MEDS: RINGERS SOLUTION,LACTATED 1,000 ML IV PRN (03:35)
[2019-10-02 05:08] LABS: ABSOLUTE EOSINOPHILS # (AUTO) 0.2 10^3/uL (0.0-0.6); ABSOLUTE LYMPHOCYTES (AUTO) 1.7 10^3/uL (0.5-4.7); ABSOLUTE MONOCYTES (AUTO) 0.7 10^3/uL (0.1-1.4); ABSOLUTE NEUT (AUTO) 6.6 10^3/uL (1.7-8.2); BASOPHILS % (AUTO) 0.4 % (0-2); EOSINOPHILS % (AUTO) 2.1 % (0-6); HEMATOCRIT 37.3 % (37.9-51.0); HEMOGLOBIN 12.8 g/dL (13.5-17.0); LYMPHOCYTES % (AUTO) 18.4 % (13-45); MEAN CORPUSCULAR HEMOGLOBIN 34.6 pg (27.0-33.4); MEAN CORPUSCULAR HGB CONC 34.3 g/dL (32.0-36.0); MEAN CORPUSCULAR VOLUME 101 fl (80-97); PLATELET COUNT 293 10^3/uL (150-450); RED BLOOD COUNT 3.69 10^6/uL (4.35-5.55); RED CELL DISTRIBUTION WIDTH 12.9 % (11.5-14.0); SEGMENTED NEUTROPHILS % (AUTO) 71.1 % (42-78); TOTAL CELLS COUNTED % (AUTO) 100 %; WHITE BLOOD COUNT 9.3 10^3/uL (4.0-10.5)
[2019-10-02] MEDS: HEPARIN SOD (PORCINE) 5,000 UNIT/ML 1 ML VIAL SUBCUT SCH (05:08)
[2019-10-02 05:34] LABS: ALBUMIN 3.2 g/dL (3.5-5.0); ALKALINE PHOSPHATASE 43 U/L (38-126); ASPARTATE AMINO TRANSFERASE 54 U/L (17-59); BILIRUBIN,TOTAL 1.6 mg/dL (0.2-1.3); BLOOD UREA NITROGEN 7 mg/dL (7-20); CALCIUM 8.6 mg/dL (8.4-10.2); CHLORIDE 103 mmol/L (98-107); GLUCOSE 94 mg/dL (75-110); POTASSIUM 3.9 mmol/L (3.6-5.0); TOTAL PROTEIN 5.3 g/dL (6.3-8.2)
[2019-10-02 05:40] LABS: CARBON DIOXIDE 28 mmol/L (22-30)
[2019-10-02 05:43] LABS: ANION GAP 3 (5-19)
--- NOTE | 2019-10-02 09:49 | RADIOLOGY REPORT (SQ) ---
EXAM DESCRIPTION: CHEST SINGLE VIEW IMAGES COMPLETED DATE/TIME: 10/02/2019 7:32 am REASON FOR STUDY: hypoxic resp failure COMPARISON: 10/01/2019 FINDINGS: One-view chest AP portable upright. Lungs are hyperinflated today but clear. No pneumothorax. No infiltrates or edema. No pleural flui d. Stable cardiomediastinal silhouette. TECHNICAL DOCUMENTATION: JOB ID: [id number] Reading location - IP/workstation name: [email or web address]
--- NOTE | 2019-10-02 10:38 | PSYCHOLOGICAL NOTE ---
Psych Note - Psych Note Date seen by psych provider: 10/01/19 Time seen by psych provider: 20:50 Psych Note: Reason for Consult: possible overdose Impression/plan: patient is cleared from acute psychiatric services. Patient is able to engage in organized and linear conversations. He denies intentional overdose. Unfortunately, he currently has limited memory of events but he adamantly denies thoughts of wanting to harm himself. Patient is willing to accept assistance for substance abuse. He is able to demonstrate insight into the need for detox then outpatient treatment. It is currently unknown if the patient will still need assistance on detoxing once be is medically cleared. Please contact the behavioral health team once medically cleared to assist with the patient's needs for substance abuse treatment. Dr. Moctezuma was consulted on the care care and management of this patient.
[2019-10-02] MEDS: PANTOPRAZOLE SODIUM 40 MG VIAL IV SCH (11:17)
--- NOTE | 2019-10-02 12:44 | PDOC DISCHARGE SUMMARY ---
Impression - Admit/DC Date/PCP Admission Date/Primary Care Provider: 10/01/19 08:02 Discharge Date: 10/02/19 - Discharge Diagnosis (1) Toxic encephalopathy Is this a current diagnosis for this admission?: Yes (2) Alcohol abuse Is this a current diagnosis for this admission?: Yes (3) Elevated transaminase level Is this a current diagnosis for this admission?: Yes (4) Leukocytosis Is this a current diagnosis for this admission?: Yes (5) Drug overdose, multiple drugs Is this a current diagnosis for this admission?: Yes (6) Polysubstance abuse Is this a current diagnosis for this admission?: Yes (7) Seizure Is this a current diagnosis for this admission?: Yes (8) Metabolic acidosis Is this a current diagnosis for this admission?: Yes - Additional Information Resuscitation Status: Full Code Discharge Diet: As Tolerated Discharge Activity: Activity As Tolerated Referrals: MAGNOLIA DUNBAR MD [HONORARY] - Follow up as needed Home Medications: Unobtainable 10/01/19 History of Present Illiness History of Present Illness: JONATAN CASTILLO JR is a 28 year old male found down by his roommate. Unable to obtain history. Toxicology screen positive for opiates, benzodiazepines, marijuana, cocaine and alcohol level was 34. He is acidotic (ABG pending) and has a very slight anion gap. His AST is elevated and his white blood cell count is markedly elevated at 20,000. He did receive 1 dose of Narcan in the emergency department with limited effect. He will be admitted to the hospitalist service. We will correct his acidosis. We will continue aggressive IV fluids. Blood cultures and urinalysis with reflex to culture have been obtained as well. Chest x-ray and CT scan of the head were unremarkable. We will hold on antibiotic therapy at this time and recheck CBC and chemistries in 8 hours. Hospital Course Hospital Course: The patient actually had a surprising hospital course. Last night he required four-point restraints and sedation. He was much calmer this morning. The nurse was able to take him out of restraints. The patient took a shower. He ate breakfast and was completely appropriate. Because of this I felt it was safe for discharge. Appreciate psychiatry helping with information and education regarding substance abuse programs. Physical Exam Vital Signs: Temp Pulse Resp BP Pulse Ox 98.1 F 70 18 130/75 H 99 10/02/19 08:24 10/02/19 08:24 10/02/19 08:24 10/02/19 08:24 10/02/19 08:24 Intake & Output 10/01/19 10/02/19 10/03/19 06:59 06:59 06:59 Intake Total 3318 890 Balance 3318 890 Weight 74.2 kg 64.2 kg General appearance: PRESENT: no acute distress, cooperative, well-developed Respiratory exam: PRESENT: clear to auscultation jacquelin, symmetrical, unlabored. ABSENT: rales, rhonchi, tachypnea, wheezes Cardiovascular exam: PRESENT: RRR, +S1, +S2 GI/Abdominal exam: PRESENT: normal bowel sounds, soft. ABSENT: distended, tenderness Neurological exam: PRESENT: alert, awake, oriented to person, oriented to place, oriented to time, oriented to situation, CN II-XII grossly intact Psychiatric exam: PRESENT: appropriate affect, normal mood. ABSENT: agitated, anxious Focused psych exam: ABSENT: delusional, paranoid, restlessness Results Laboratory Results: WBC 9.3 10^3/uL (4.0-10.5) 10/02/19 04:48 RBC 3.69 10^6/uL (4.35-5.55) L 10/02/19 04:48 Hgb 12.8 g/dL (13.5-17.0) L 10/02/19 04:48 Hct 37.3 % (37.9-51.0) L 10/02/19 04:48 MCV 101 fl (80-97) H 10/02/19 04:48 MCH 34.6 pg (27.0-33.4) H 10/02/19 04:48 MCHC 34.3 g/dL (32.0-36.0) 10/02/19 04:48 RDW 12.9 % (11.5-14.0) 10/02/19 04:48 Plt Count 293 10^3/uL (150-450) 10/02/19 04:48 Lymph % (Auto) 18.4 % (13-45) 10/02/19 04:48 [place] % (Auto) 8.0 % (3-13) 10/02/19 04:48 Eos % (Auto) 2.1 % (0-6) 10/02/19 04:48 Baso % (Auto) 0.4 % (0-2) 10/02/19 04:48 Absolute Neuts (auto) 6.6 10^3/uL (1.7-8.2) 10/02/19 04:48 Absolute Lymphs (auto) 1.7 10^3/uL (0.5-4.7) 10/02/19 04:48 Absolute Monos (auto) 0.7 10^3/uL (0.1-1.4) 10/02/19 04:48 Absolute Eos (auto) 0.2 10^3/uL (0.0-0.6) 10/02/19 04:48 Absolute Basos (auto) 0.0 10^3/uL (0.0-0.2) 10/02/19 04:48 Total Counted 100 10/01/19 01:25 Seg Neutrophils % 71.1 % (42-78) 10/02/19 04:48 Seg Neuts % (Manual) 79 % (42-78) H 10/01/19 01:25 Lymphocytes % (Manual) 12 % (13-45) L 10/01/19 01:25 Atypical Lymphs % 1 % (0) 10/01/19 01:25 Monocytes % (Manual) 8 % (3-13) 10/01/19 01:25 Eosinophils % (Manual) 0 % (0-6) 10/01/19 01:25 Basophils % (Manual) 0 % (0-2) 10/01/19 01:25 Abs Neuts (Manual) 16.0 10^3/uL (1.7-8.2) H 10/01/19 01:25 Abs Lymphs (Manual) 2.6 10^3/uL (0.5-4.7) 10/01/19 01:25 Abs Monocytes (Manual) 1.6 10^3/uL (0.1-1.4) H 10/01/19 01:25 Absolute Eos (Manual) 0.0 10^3/uL (0.0-0.6) 10/01/19 01:25 Abs Basophils (Manual) 0.0 10^3/uL (0.0-0.2) 10/01/19 01:25 Clumped Platelets PRESENT 10/01/19 01:25 Platelet Comment ADEQUATE 10/01/19 01:25 Macrocytosis 1+ 10/01/19 01:25 Carbonic Acid 1.42 mmol/L (1.05-1.35) H 10/01/19 08:22 HCO3/H2CO3 Ratio 17:1 10/01/19 08:22 ABG pH 7.35 (7.35-7.45) 10/01/19 08:22 ABG pCO2 47.3 mmHg (35-45) H 10/01/19 08:22 ABG pO2 111.1 mmHg (80-100) H 10/01/19 08:22 ABG HCO3 25.4 mmol/L (20-24) H 10/01/19 08:22 ABG Total CO2 26.9 mmol/L (23-27) 10/01/19 08:22 ABG O2 Saturation 97.8 % (94-98) 10/01/19 08:22 ABG Base Excess -0.7 mmol/L 10/01/19 08:22 FiO2 2L 10/01/19 08:22 Sodium 134.2 mmol/L (137-145) L 10/02/19 04:48 Potassium 3.9 mmol/L (3.6-5.0) 10/02/19 04:48 Chloride 103 mmol/L (98-107) 10/02/19 04:48 Carbon Dioxide 28 mmol/L (22-30) 10/02/19 04:48 Anion Gap 3 (5-19) L 10/02/19 04:48 BUN 7 mg/dL (7-20) 10/02/19 04:48 Creatinine 0.89 mg/dL (0.52-1.25) 10/02/19 04:48 Est GFR ( Amer) > 60 (>60) 10/02/19 04:48 Est GFR (MDRD) Non-Af > 60 (>60) 10/02/19 04:48 Glucose 94 mg/dL (75-110) 10/02/19 04:48 POC Glucose 89 mg/dL (70-110) 10/02/19 06:12 Calcium 8.6 mg/dL (8.4-10.2) 10/02/19 04:48 Magnesium 1.8 mg/dL (1.6-2.3) 10/02/19 04:48 Total Bilirubin 1.6 mg/dL (0.2-1.3) H 10/02/19 04:48 Direct Bilirubin 0.0 mg/dL (0.0-0.4) 10/02/19 04:48 Neonat Total Bilirubin Not Reportable 10/02/19 04:48 Neonat Direct Bilirubin Not Reportable 10/02/19 04:48 Neonat Indirect Bili Not Reportable 10/02/19 04:48 AST 54 U/L (17-59) 10/02/19 04:48 ALT 38 U/L (<50) 10/02/19 04:48 Alkaline Phosphatase 43 U/L (38-126) 10/02/19 04:48 Ammonia 17.6 umol/L (9-33) 10/01/19 08:22 Troponin I 0.027 ng/mL 10/01/19 01:25 Total Protein 5.3 g/dL (6.3-8.2) L 10/02/19 04:48 Albumin 3.2 g/dL (3.5-5.0) L 10/02/19 04:48 Urine Color YELLOW 10/01/19 01:48 Urine Appearance SLIGHTLY-CLOUDY 10/01/19 01:48 Urine pH 5.0 (5.0-9.0) 10/01/19 01:48 Ur Specific [place] 1.023 10/01/19 01:48 Urine Protein 100 mg/dL (NEGATIVE) H 10/01/19 01:48 Urine Glucose (UA) NEGATIVE mg/dL (NEGATIVE) 10/01/19 01:48 Urine Ketones NEGATIVE mg/dL (NEGATIVE) 10/01/19 01:48 Urine Blood SMALL (NEGATIVE) H 10/01/19 01:48 Urine Nitrite NEGATIVE (NEGATIVE) 10/01/19 01:48 Urine Bilirubin NEGATIVE (NEGATIVE) 10/01/19 01:48 Urine Urobilinogen NEGATIVE mg/dL (<2.0) 10/01/19 01:48 Ur Leukocyte Esterase NEGATIVE (NEGATIVE) 10/01/19 01:48 Urine WBC (Auto) 12 /HPF 10/01/19 01:48 Urine RBC (Auto) 7 /HPF 10/01/19 01:48 U Hyaline Cast (Auto) 4 /LPF 10/01/19 01:48 Urine Mucus (Auto) RARE /LPF 10/01/19 01:48 Urine Ascorbic Acid NEGATIVE (NEGATIVE) 10/01/19 01:48 Urine Opiates Screen UNCONFIRMED POSITIVE 10/01/19 01:48 Urine Methadone Screen NEGATIVE 10/01/19 01:48 Ur Barbiturates Screen NEGATIVE 10/01/19 01:48 Ur Phencyclidine Scrn NEGATIVE 10/01/19 01:48 Ur Amphetamines Screen NEGATIVE 10/01/19 01:48 U Benzodiazepines Scrn UNCONFIRMED POSITIVE 10/01/19 01:48 Urine Cocaine Screen UNCONFIRMED POSITIVE 10/01/19 01:48 U Marijuana (THC) Screen UNCONFIRMED POSITIVE 10/01/19 01:48 Serum Alcohol 34 mg/dL (NONE DETECTED) 10/01/19 01:25 10/01/19 01:25 Troponin I 0.027 Impressions: Chest X-Ray 10/01/19 01:40 IMPRESSION: Negative chest copyright 2010 [email or web address]- All Rights Reserved Head CT 10/01/19 01:40 IMPRESSION: Right maxillary sinusitis. No acute intracranial abnormality TECHNICAL DOCUMENTATION: Quality ID # 436: Final reports with documentation of one or more dose reduction techniques (e.g., Automated exposure control, adjustment of the mA and/or kV according to patient size, use of iterative reconstruction technique) copyright 2011 [email or web address]- All Rights Reserved Plan Health Concerns: Continued use of multiple drugs of abuse and alcohol Plan of Treatment: Discharged home. Please also see psychiatry note. Hopefully the patient will follow their suggestion about inpatient rehab programs. Goals: Cessation of alcohol, tobacco and drugs Time Spent: Less than 30 Minutes Stroke Is this a Stroke Patient?: No Acute Heart Failure - Is this a Heart Failure Patient?: No
[2019-10-02 13:17] VITALS: BP 124/68
--- NOTE | 2019-10-02 13:48 | PSYCHOLOGICAL NOTE ---
Psych Note - Psych Note Date seen by psych provider: 10/02/19 Psych Note: Patient was seen just prior to discharge to provided detox and substance abuse resource list. Unfortunately, at this time there is no bed availability at the [facility]. Patient was informed that there is a possibility there will be some discharges throughout the day. It was suggested the patient call throughout the day to see if a bed becomes available. Patient was also provided additional detox facilities he can reach out to. Referral to community paramedics has been provided for community follow-up for continued assistance in substance abuse treatment.
== END 2019-10-02 13:53 | disposition home or self-care (01) | DRG 917 ==
LOC: ER 00:59 → OBSVTOIN 08:02 → EH 08:02 → 3S 09:32
PROVIDERS: ADMIT Hospitalist; ATTEND Hospitalist
DX: T40.5X1A Poisoning by cocaine, accidental (unintentional), initial encounter (principal); G92 Toxic encephalopathy; E87.2 Acidosis; T51.0X1A Toxic effect of ethanol, accidental (unintentional), initial encounter; R74.0 Nonspecific elevation of levels of transaminase and lactic acid dehydrogenase [LDH]; D72.829 Elevated white blood cell count, unspecified; R56.9 Unspecified convulsions; F19.10 Other psychoactive substance abuse, uncomplicated; F11.10 Opioid abuse, uncomplicated; F14.10 Cocaine abuse, uncomplicated; F12.10 Cannabis abuse, uncomplicated; F10.10 Alcohol abuse, uncomplicated; Y90.1 Blood alcohol level of 20-39 mg/100 ml; Y92.018 Other place in single-family (private) house as the place of occurrence of the external cause; Z78.1 Physical restraint status
CPT/HCPCS: 36415; 70450; 71045; 80048; 80053; 80076; 80307; 81001; 82140; 82803; 82962; 83735; 84484; 85025; 87040; 87086; 93005; 93010; 96372; 96374; 96375; 99285; C9113; J0696; J1200; J2060; J2310; J3370; J3490; J7030; J7060; J7120

== ENCOUNTER 2019-11-10 11:31 | Emergency (ER) | payer OTHER ==
[2019-11-10] MEDS ORDERED: DIPHENHYDRAMINE HCL 50 MG/ML VIAL IV ONE (11:38)
[2019-11-10] MEDS ORDERED: METHYLPREDNISOLONE INJ 125 MG/2 ML SDV IV ONE (11:38)
[2019-11-10] MEDS ORDERED: EPINEPHRINE INJ/PF 1 MG/1 ML AMPULE IM ONE (11:38)
[2019-11-10] MEDS ORDERED: FAMOTIDINE INJ/PF 20 MG/2 ML SDV IV ONE (11:38)
--- NOTE | 2019-11-10 11:40 | ER Document Report ---
ED Medical Screen (RME) - General Chief Complaint: Allergic Reaction Stated Complaint: POSSIBLE ALLERGIC,LIP SWELLING Time Seen by Provider: 11/10/19 11:36 Mode of Arrival: Wheelchair Information source: Patient Notes: 28-year-old male presented to ED for allergic reaction to hornet. He states he just Stung about 15 minutes ago. He states he has swelling to the mouth lips shortness of breath itching all over. 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 Will get him seen as soon as possible. I have spoken to the director community center who is finding the charge nurse to get me a room. I have greeted and performed a rapid initial assessment of this patient. A comprehensive ED assessment and evaluation of the patient, analysis of test results and completion of medical decision making process will be conducted by an additional ED providers. TRAVEL OUTSIDE OF THE [place] IN LAST 30 DAYS: No - Related Data Allergies/Adverse Reactions: bee venom protein (honey bee) Allergy (Verified 06/20/19 14:56) Past Medical History - Social History Family history: Reviewed & Not Pertinent - Past Medical History Cardiac Medical History: Denies: Hx Coronary Artery Disease, Hx Hypercholesterolemia, Hx Hypertension, Hx Pulmonary Embolism Pulmonary Medical History: Denies: Hx Asthma Renal/ Medical History: Reports: Hx Peritoneal Dialysis Psychiatric Medical History: Reports: Hx Depression - Immunizations Immunizations up to date: No Hx Diphtheria, Pertussis, Tetanus Vaccination: Yes
[2019-11-10] MEDS ORDERED: RINGERS SOLUTION,LACTATED 1,000 ML IV ONE (11:46)
--- NOTE | 2019-11-10 11:47 | ER Document Report ---
ED Allergic Reaction - General Chief Complaint: Allergic Reaction Stated Complaint: POSSIBLE ALLERGIC,LIP SWELLING Time Seen by Provider: 11/10/19 11:36 Mode of Arrival: Wheelchair TRAVEL OUTSIDE OF THE [place] IN LAST 30 DAYS: No - HPI Notes: 28-year-old male presents with allergic reaction. 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 He reports that he is allergic to bees. He has been previously prescribed EpiPen, however has not had it filled. Did not receive any epinephrine prior to arrival. He states that for the past 10 minutes he has had diffuse body itching. Is also noticed that his lips are swollen and feels that his sinuses are swollen. He has some mild shortness of breath. - Related Data Allergies/Adverse Reactions: bee venom protein (honey bee) Allergy (Verified 06/20/19 14:56) Past Medical History - General Information source: Patient - Social History Smoking Status: Current Every Day Smoker Chew tobacco use (# tins/day): No Frequency of alcohol use: Social Drug Abuse: Cocaine, Marijuana Family History: Reviewed & Not Pertinent, DM - Past Medical History Cardiac Medical History: Denies: Hx Coronary Artery Disease, Hx Hypercholesterolemia, Hx Hypertension, Hx Pulmonary Embolism Pulmonary Medical History: Denies: Hx Asthma Renal/ Medical History: Reports: Hx Peritoneal Dialysis Psychiatric Medical History: Reports: Hx Depression - Immunizations Immunizations up to date: No Hx Diphtheria, Pertussis, Tetanus Vaccination: Yes Review of Systems - Review of Systems Constitutional: No symptoms reported EENT: Mouth swelling Cardiovascular: denies: Chest pain Respiratory: Short of breath Gastrointestinal: denies: Diarrhea, Vomiting Genitourinary: No symptoms reported Musculoskeletal: No symptoms reported Skin: Rash Hematologic/Lymphatic: No symptoms reported Neurological/Psychological: No symptoms reported Physical Exam - Vital signs Vitals: Temp Pulse BP Pulse Ox 98.4 F 104 H 130/80 H 98 11/10/19 11:35 11/10/19 11:35 11/10/19 11:35 11/10/19 11:35 Interpretation: No: Hypoxic - General General appearance: Alert - HEENT Head: Normocephalic, Atraumatic Conjunctiva: No: Injected Pupils: PERRL Mouth/Lips: Other - Swelling to upper and lower lip Pharynx: Other - No swelling. No: Erythema Neck: Supple, Other - Phonation normal, no stridor - Respiratory Respiratory status: No respiratory distress. No: Tachypnea Breath sounds: No: Wheezing Notes: Speaking in full sentences, no increased work of breathing - Cardiovascular Rhythm: Regular Heart sounds: Normal auscultation - Abdominal Tenderness: Nontender - Extremities General upper extremity: Normal strength General lower extremity: Normal strength - Neurological Neuro grossly intact: Yes Orientation: AAOx4 - Psychological Associated symptoms: Normal affect - Skin Notes: Evidence of bee stings to dorsum of left hand, dorsum of right hand, right forearm, and right ankle. There is mild edema and erythema to these areas. Course - Re-evaluation Re-evalutation: 28-year-old male presents following allergic reaction to bee stings, known allergy. Overall stable, currently no signs of anaphylactic shock. Will treat with IM epinephrine, Pepcid, Benadryl and Solu-Medrol. Also give fluids. Observe in ED. 11/10/19 12:58 Patient reassessed, he is sleeping in bed. Vital signs are stable. No wheezing. 11/10/19 14:32 And to reassess patient. He reports that he is much improved and feeling better. His lip swelling has resolved. Vitals remained stable and phonation remains normal. He has tolerated p.o. Discussed with him prednisone burst, have also sent in EpiPen. Discussed that he can also continue Benadryl as needed. Return precautions given, stable at time of discharge. - Vital Signs Vital signs: Temp Pulse Resp BP Pulse Ox 98.4 F 104 H 15 142/84 H 97 11/10/19 11:35 11/10/19 11:35 11/10/19 12:01 11/10/19 12:00 11/10/19 12:01 Discharge - Discharge Clinical Impression: Allergic reaction to bee sting Condition: Stable Disposition: HOME, SELF-CARE Instructions: Acute Allergic Reaction ([facility]) Additional Instructions: Please begin 5-day course of steroids. Please obtain prescription for EpiPen. You may continue to use Benadryl if itching continues. Please return to the ED for worsening symptoms. Prescriptions: Prednisone [Deltasone 20 mg Tablet] 2 tab PO DAILY 5 Days #10 tablet Epinephrine [Epipen 2-Philip] 0.3 mg IM ONCE PRN #1 packet PRN Reason: bee sting Print Language: Algerian
[2019-11-10 15:22] VITALS: BP 127/69
== END 2019-11-10 14:45 | disposition home or self-care (01) ==
LOC: ER 11:31
DX: T63.441A Toxic effect of venom of bees, accidental (unintentional), initial encounter (principal); R06.02 Shortness of breath; Y92.89 Other specified places as the place of occurrence of the external cause; Y99.0 Civilian activity done for income or pay; F17.200 Nicotine dependence, unspecified, uncomplicated
CPT/HCPCS: 99281; 96372; 96361; 96374; 96375; J1200; J0171; J2930; J7120; S0028